=== PATIENT | female | born 1960 | race Caucasian/White ===

== ENCOUNTER → 2019-01-16 13:28 | Outpatient (CLI) | payer MEDICARE, SELFPAY ==
[2019-01-16 16:46] LABS: Amphetamine/Metha Screen,Urine Negative ng/mL (<1000); Barbiturates Screen,Urine Negative ng/mL (<200); Benzodiazepines Screen,Urine Negative ng/mL (<200); Cannabinoid Screen,Urine Negative ng/mL (<50); Cocaine Screen,Urine Negative ng/mL (<300); Methadone Screen,Urine Negative ng/mL (<300); Opiate Screen,Urine Negative ng/mL (<300); Phencyclidine Screen,Urine Negative ng/mL (<25)
== END ==
PROVIDERS: Visit Provider Nurse Practitioner Family
DX: Z79.899 Other long term (current) drug therapy (principal)
CPT/HCPCS: 80305

== ENCOUNTER → 2019-01-20 09:58 | Outpatient (CLI) | payer MEDICARE, SELFPAY ==
--- NOTE | 2019-01-20 10:01 | CT_ITS ---
PROCEDURE: CT LUMBAR SPINE WO CON CLINICAL HISTORY: back pain Low back pain with right leg pain COMPARISON: No exams were available for comparison TECHNIQUE: Axial images obtained with sagittal and coronal reformats. All CT scans at the facility use one or more dose reduction, viz: automated exposure control, ma/kV adjustment per patient size (including targeted exams where dose is matched to indication, i.e. head), or iterative reconstruction technique. FINDINGS: Normal alignment. No fracture or dislocation. There is degenerative disc disease at L2-L3 with bulging disc. Mild degenerative disc disease L3-L4 with mild bulging disc. L4-5 shows mild bulging disc along with mild facet and ligamentum hypertrophy. L5-S1: Mild concentric bulging disc slightly eccentric toward the right. Incidental note made cholelithiasis. There is mild atelectasis versus patchy infiltrate in the right lung base posteriorly. IMPRESSION: 1. Lumbar spondylosis with degenerative changes with degenerative disc disease and bulging discs as detailed above. Please see above for detail 2. Cholelithiasis. 3. Atelectasis or patchy infiltrate in the right lung base posteriorly Dictated by: Vishnu Jacome MD 01/20/2019 16:00 Electronically signed by Vishnu Jacome MD in [place] 01/20/2019 16:00
== END ==
PROVIDERS: PCP Nurse Practitioner Family; Visit Provider Nurse Practitioner Family
DX: M54.5 Low back pain (principal)
CPT/HCPCS: 72131

== ENCOUNTER → 2019-01-24 10:17 | Outpatient (CLI) | payer MEDICARE, SELFPAY ==
--- NOTE | 2019-01-24 10:22 | XR_ITS ---
PROCEDURE: XR CHEST 2V CLINICAL HISTORY: cough COMPARISON: CT LUMBAR SPINE WO CON from 01/20/2019 FINDINGS: Bipolar pacemaker is present with normal heart size. The lungs are clear without infiltrates, suspicious nodules, or pleural effusions. Previously noted density in the right lung base is either below limits of resolution or has cleared compared to the previous CT scan. IMPRESSION: No acute findings. Dictated by: Vishnu Jacome MD 01/24/2019 14:01 Electronically signed by Vishnu Jacome MD in [place] 01/24/2019 14:01
== END ==
PROVIDERS: PCP Nurse Practitioner Family; Visit Provider Nurse Practitioner Family
DX: R05 Cough (principal)
CPT/HCPCS: 71046

== ENCOUNTER → 2019-02-17 07:55 | Outpatient (CLI) | payer MEDICARE, SELFPAY ==
--- NOTE | 2019-02-17 07:59 | US_ITS ---
PROCEDURE: US GALLBLADDER CLINICAL INDICATION: GALLSTONES Pain COMPARISON: CT LUMBAR SPINE WO CON from 01/20/2019 FINDINGS: Pancreas: Unremarkable Liver: There are few fatty areas in the liver. No focal liver lesion.. There is appropriate direction of blood flow within a non dilated portal vein. Right kidney: Unremarkable appearing. No hydronephrosis. Gallbladder: There is a 16 mm stone in the fundus of the gallbladder. No gallbladder wall thickening, pericholecystic fluid, or biliary dilatation evident IMPRESSION: Cholelithiasis Dictated by: Vishnu Jacome MD 02/17/2019 15:21 Electronically signed by Vishnu Jacome MD in [place] 02/17/2019 15:21
== END ==
PROVIDERS: PCP Nurse Practitioner Family; Visit Provider Surgery
DX: K82.9 Disease of gallbladder, unspecified (principal)
CPT/HCPCS: 76705

== ENCOUNTER 2024-07-23 06:47 | Outpatient (CLI) | payer MEDICARE, SELFPAY ==
--- OUTSIDE RECORDS SUMMARY | 2024-07-02 06:00 | XMS_ITS | Encounter Summary ---
Author Organization [employer] [facility] Address [address] [place] [address] Care Team Providers Care Electric Deicer Assembler Name Role Phone Laurel Banegas EMETERIO Primary Care Provider [phone] Reason for Visit * Reason Comments Pacemaker /ICD Home Monitoring Encounter Details Date Type Department Care Team (Late st Contact Info) Description 07/02/2024 6:00 AM EDT Clinical Support [facility] Electrophysiology [address] [facility] [address] [facility] [address] [place] [address] Artie Mckeon MD [address] [facility] [address] [address] [place] [address] Encounter for adjustment or management of cardiac device (Primary Dx); Sick sinus syndrome (HCC); MRI safe cardiac pacemaker in situ Social History Tobacco Use Types Packs/Day Years Used Date Smoking Tobacco: Every Day Smokeless Tobacco: Never Alcohol Use Standard Drinks/Week Comments Not Currently 0 (1 standard drink = 0.6 oz pur e alcohol) Interpersonal Safety Answer Date Record ed Family or friends hurt you Not on file 03/02 Family or friends insult you Not on file Family or friends threaten you Not on file 0 03/02/2023 Family or friends scream or curse at you Not on file 03/02/2023 Housing Stability Answer Date Recorded Living situation today Not on file Living situation problems Not on file 2023 Family and Community Support Answer Alex e Recorded Help with Day to Day Activities Not on file 03/02/2023 Feeling Lonely or Isolated Not on file 03/02 Educational Attainment Answer Date Kristopher rded Speak language other than [place] at home Not on file 03/02/2023 Want help with school or training Not on file 03/02/2023 Depression Answer Date Recorded PHQ-2 Risk Not on file 03/02/2023 Disabilities Answer Date Recorded Difficulty concentrating Not on file 024 Difficulty doing errands alone Not on file 0 03/02/2023 Substance Use Answer Date Recorded Used prescription meds for non-medical reasons N ot on file 03/02/2023 Used illegal drugs past 12 months Not on file 03/02/2023 Comments No Sex and Gender Information Value Date Recorded Sex Assigned at Not on file Legal Sex Female 3:37 PM CDT Gender Identity Not on file Sexual Orientation Not on file documented as of this encounter Plan of Treatment Upcoming Encounters Date Type Department Care Team (Late st Contact Info) Description 09/10/2024 8:45 AM EDT Office Visit [facility] Electrophysiology [address] [facility] [address] [place] [address] Leroy Flores MD [address] [facility] [address] [place] [address] Artie Mckeon MD [address] [facility] [address] [place], [place] [id number] documented as of this encounter Visit Diagnoses Diagnosis Encounter for adjustment or management of cardiac device- Primary Sick sinus syndrome (HCC) Sinoatrial node dysfunction MRI safe cardiac pacemaker in situ documented in this encounter Care Teams Electric Deicer Assembler Relationship Specialty Start Date End Date Laurel Banegas APRN PCP - General Family Medicine 04/17/22 documented as of this encounter
--- OUTSIDE RECORDS SUMMARY | 2024-07-23 06:50 | XMS_ITS | Data Portability ---
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 Results of dipstick were negative for UTI. Advised to drink clear fluids, Tylenol for pain and take prescribed medications as instructed. Patient encouraged to follow up within 1 week if not improving. Not available 01/16/2023 13:38:41 01/23/2023 01/23/2023 Declines mammo today. Not available 01/23/2023 11:15:17 06/26/2023 06/26/2023 Refused mammo, PAP, colon cancer screening, and low dose lung CT. Not available 06/26/2023 14:31:52 12/25/2023 12/25/2023 She refuses labs today. She refuses mammogram and colon cancer screening today. Not available 12/25/2023 16:17:19 Plan of Treatment Reminders Order Date Submit Date Provider Last Modified By Organization Details Last Modified Time Details Appointments None recorded. Lab TSH, ultra-sensi tive, serum 2024 025 MARIBEL [facility] ([place] [address] [place] [address], [place], [address], 04:08:52 lipid panel, serum 2024 025 [facility] ([place]), [address] [place], [address], 5 04:08:50 cobalamin and folate panel, serum 2024 025 [facility] ([facility]), [address] [place], [address], 5 04:08:51 iron + TIBC + ferritin, serum 2024 025 [facility]), [address] [place], [address], 5 04:08:48 magnesium, serum or plasma 2024 025 [facility] ([place]), [address] [place], [address], 5 04:08:52 HbA1c (hemoglobin A1c), blood 2024 025 [facility]), [address] [place], [address], 5 04:08:51 CBC w/ auto diff 2024 025 [facility]), [address] [place], [address], 5 04:08:49 CMP, serum or plasma 2024 025 [facility]), [address] [place], [address], 5 04:08:50 lipid panel, serum 2022 023 [employer] [facility], [address], [place], [address], 3 05:30:24 CMP, serum or plasma 2022 023 MARIBELEarnest [facility], [address], [place], [address], 3 05:30:25 CBC w/ auto diff 2022 023 [employer] [facility], [address], [place], [address], 3 05:30:25 TSH, serum or plasma 2022 023 [employer] [facility], [address], [place], [address], 3 05:30:26 urinalysis, dipstick [email or web address] [place] [address], [address] [place] [address], [address], 3 13:43:49 Referral cardiologis t referral - Due for 6 month f/up 2024 025 [email or web address] Artie Mckeon MD, [address], [facility] [[email or web address]] [email or web address], [place], [address], 5 08:41:29 Procedures None recorded. Surgeries None recorded. Imaging US, gallbladder - first available appt 2023 024 [facility], [address], [place], [address], 4 11:08:06 LDCT, chest, for lung cancer screening - first avail 2023 024 [facility], [address], [place], [address], 5 09:03:15 LDCT, chest, for lung cancer screening - first available appt [email or web address] [place] [address] Central[facility] Sched[facility], [address] , [place], [address], 3 11:29:02 Medication Orders atenolol 50 mg tablet 2024 MARIBEL [facility], [address], [place], [address], 5 11:47:45 pravastatin 40 mg tablet 2024 MARIBEL [facility], [address], [place], [address], 5 11:47:41 Ventolin HFA 90 mcg/actuati on aerosol inhaler 2024 MARIBEL [facility], [address], [place], [address], 5 11:56:21 Symbicort 160 mcg-4.5 mcg/actuati on HFA aerosol inhaler 2024 MARIBEL [facility], [address], [place], [address], 5 11:47:41 Singulair 10 mg tablet 2024 MARIBEL [facility], [address], [place], [address], 5 11:47:45 mirtazapine 45 mg tablet 2024 025 MARIBEL [facility], [address], [place], [address], 5 11:47:46 ropinirole 1 mg tablet 2024 MARIBEL [facility], [address], [place], [address], 5 11:47:45 ropinirole 4 mg tablet 2024 025 MARIBEL [facility], [address], [place], [address], 5 11:47:43 omeprazole 40 mg capsule,del ayed release 2024 025 MARIBEL [facility], [address], [place], [address], 5 11:47:42 pravastatin 40 mg tablet 2023 MARIBEL [facility], [address], [place], [address], 4 15:18:14 atenolol 50 mg tablet 2023 MARIBEL [facility], [address], [place], [address], 4 15:18:15 ipratropium 0.5 mg-albutero l 3 mg (2.5 mg base)/3 mL nebulizatio n soln 2023 MARIBEL [facility], [address], [place], [address], 4 16:26:44 Singulair 10 mg tablet 2023 MARIBEL [facility], [address], [place], [address], 4 15:18:13 Ventolin HFA 90 mcg/actuati on aerosol inhaler 2023 MARIBEL [facility], [address], [place], [address], 4 16:26:47 ropinirole 1 mg tablet 2023 MARIBEL [facility], [address], [place], [address], 4 16:26:46 ropinirole 4 mg tablet 2023 024 MARIBEL [facility], [address], [place], [address], 4 16:26:52 mirtazapine 30 mg tablet 2023 025 MARIBEL [facility], [address], [place], [address], 5 11:56:09 ropinirole 1 mg tablet 2023 024 MARIBEL [facility], [address], [place], [address], 4 12:20:05 ropinirole 4 mg tablet 2023 024 MARIBEL [facility], [address], [place], [address], 4 15:03:23 pravastatin 40 mg tablet 2023 024 MARIBEL [facility], [address], [place], [address], 4 14:45:57 mirtazapine 30 mg tablet 2023 024 [email or web address] [facility], [address] [place], [address], 5 11:54:32 Ventolin HFA 90 mcg/actuati on aerosol inhaler 2023 024 MARIBEL [facility], [address], [place], [address], 4 14:46:03 Symbicort 160 mcg-4.5 mcg/actuati on HFA aerosol inhaler 2023 024 MARIBEL [facility], [address] [place], [address], 4 12:20:06 ipratropium 0.5 mg-albutero l 3 mg (2.5 mg base)/3 mL nebulizatio n soln 2023 024 MARIBEL [facility], [address], [place], [address], 4 14:45:55 Singulair 10 mg tablet 2023 024 MARIBEL [facility], [address], [place], [address], 4 14:46:06 ropinirole 1 mg tablet 2022 023 MARIBEL [facility], [address], [place], [address], 4 16:41:05 ropinirole 4 mg tablet 2022 023 MARIBEL [facility], [address], [place], [address], 4 16:41:06 mirtazapine 30 mg tablet 2022 023 [email or web address] [facility], [address], [place], [address], 5 11:54:32 pravastatin 40 mg tablet 2022 023 MARIBEL [facility], [address], [place], [address], 4 11:29:13 cefdinir 300 mg capsule 2022 023 chica [facility], [address], [place], [address], 4 14:09:27 Symbicort 160 mcg-4.5 mcg/actuati on HFA aerosol inhaler 2022 023 MARIBEL [facility], [address] [facility], [place], [address], 4 16:41:04 Ventolin HFA 90 mcg/actuati on aerosol inhaler 2022 023 [email or web address], [address] [place], [address], 3 11:18:26 Singulair 10 mg tablet 2022 023 MARIBEL [facility], [address] [place], [address], 4 11:29:15 Pyridium 100 mg tablet 2022 023 [facility], [address] [place] [address], [address], 3 10:47:18 Patient TargetsNo targets recorded. Patient InstructionsNo instructions recorded. Reason for Referral Inspector Tool Referral for Ca rdiac arrhythmia Due for 6 month f/up Referring Physician: Jonny Banegas, Family Medicine, Encounter Date: 06/27/2024 Results Created Date Observation Date Name Description Value Unit Range Abnormal Flag Note LastModifiedBy Organization Detail LastModifiedTime 01/17/2001/16/2023 urina lysis , dipst ick Leukocytes Negati ve Not Available [address], [address], 01/16/2023 13:19:38 01/17/20 23 01/16/2023 urina lysis , dipst ick Nitrite negati ve Not Available [address], [address], 01/16/2023 13:19:38 01/17/20 23 01/16/2023 urina lysis , dipst ick Urobilinogen .2 Not Available [address], [address], 01/16/2023 13:19:38 01/17/20 23 01/16/2023 urina lysis , dipst ick Protein Negati ve Not Available [address], [address], 01/16/2023 13:19:38 01/17/20 23 01/16/2023 urina lysis , dipst ick pH 6.5 Not Available [address], [address], 01/16/2023 13:19:38 01/17/2001/16/2023 urina lysis , dipst ick Blood Non-He molyze d: Trace Not Available [address], [address], 01/16/2023 13:19:38 01/17/20 23 01/16/2023 urina lysis , dipst ick Specific [place] 1.010 Not Available [address], [address], 01/16/2023 13:19:38 01/17/20 23 01/16/2023 urina lysis , dipst ick Ketone Negati ve Not Available [address], [address], 01/16/2023 13:19:38 01/17/20 23 01/16/2023 urina lysis , dipst ick Bilirubin Negati ve Not Available [address], [address], 01/16/2023 13:19:38 01/17/20 23 01/16/2023 urina lysis , dipst ick Glucose Negati ve Not Available [address] [place], [address], 01/16/2023 13:19:38 01/17/20 23 01/16/2023 urina lysis , dipst ick Appearance Clear Not Available [address], [address], 01/16/2023 13:19:38 01/17/20 23 01/16/2023 urina lysis , dipst ick Color Pale Yellow Not Available [address], [address], 01/16/2023 13:19:38 01/24/20 23 01/24/2023 LIPID PANEL , STAND STACY cholesterol, total 180 mg/dL <200 normal Not Available [facility] [address] [place], [address], 01/24/2023 08:29:48 01/24/20 23 01/24/2023 LIPID PANEL , STAND STACY HDL cholesterol 57 mg/dL > or = 50 normal Not Available [facility] [address] [place], [address], 01/24/2023 08:29:48 01/24/20 23 01/24/2023 LIPID PANEL , STAND STACY triglyceride s 155 mg/dL <150 high Not Available [facility] [address] [place], [address], 01/24/2023 08:29:48 01/24/20 23 01/24/2023 LIPID PANEL , STAND STACY LDL-choleste rol 98 mg/dL _(benjamin c) normal Refer ence range : <100 Fredo able range <100 mg/dL for prima ry preve ntion ; <70 mg/dL for patie nts with CHD or diabe tic patie nts with > or = 2 CHD risk facto rs. LDL-C is now calcu lated using the Juany n-Hop kins calcu janis n, which is a valid ated novel metho d provi ding vikash r accur acy than the Fried luma equat ion in the estim ation of LDL-C . Juany n SS et al. LOBITO. 2013; 310(1 9): 2061- 2068 (http ://ed ucati on.Qu estDi fanyUEISs. com/f aq/FA Q164) Not Available [facility] [address] [facility], [place], [address], 01/24/2023 08:29:48 01/24/20 23 01/24/2023 LIPID PANEL , STAND STACY chol/HDLC ratio 3.2 (calc ) <5.0 normal Not Available [facility] [address] [facility], [place], [address], 01/24/2023 08:29:48 01/24/20 23 01/24/2023 LIPID PANEL , STAND STACY non HDL cholesterol 123 mg/dL _(benjamin c) <130 normal For patie nts with diabe evon plus 1 major ASCVD risk facto r, treat ing to a non-H DL-C goal of <100 mg/dL (LDL- C of <70 mg/dL ) is consi maicol garnicao n. Not Available [facility] [address] [facility], [place], [address], 01/24/2023 08:29:48 01/24/20 23 01/24/2023 COMPR EHENS ALANIS METAB OLIC PANEL glucose 80 mg/dL 65-99 normal Fasti ng refer ence inter kiran Not Available [facility] [address] [facility], [place], [address], 01/24/2023 08:29:49 01/24/20 23 01/24/2023 COMPR EHENS ALANIS METAB OLIC PANEL urea nitrogen (BUN) 9 mg/dL 7-25 normal Not Available [facility] [address] [facility], [place], [address], 01/24/2023 08:29:49 01/24/20 23 01/24/2023 COMPR EHENS ALANIS METAB OLIC PANEL creatinine 0.75 mg/dL 0.50-1 .05 normal Not Available [facility] [address] [facility] [place], [address], 01/24/2023 08:29:49 01/24/20 23 01/24/2023 COMPR EHENS ALANIS METAB OLIC PANEL eGFR 91 mL/mi n/1.7 3m2 > or = 60 normal Not Available [facility] [address] [facility] [place], [address], 01/24/2023 08:29:49 01/24/2001/24/2023 COMPR EHENS ALANIS METAB OLIC PANEL BUN/creatini ne ratio SEE NOTE: (calc ) 6-22 Not Repor argelia: BUN and Creat inine are withi n refer ence range . Not Available [facility] [address] [facility] [place], [address], 01/24/2023 08:29:49 01/24/20 23 01/24/2023 COMPR EHENS ALANIS METAB OLIC PANEL sodium 137 mmol/ L 135-14 6 normal Not Available [facility] [address] [facility] [place], [address], 01/24/2023 08:29:49 01/24/20 23 01/24/2023 COMPR EHENS ALANIS METAB OLIC PANEL potassium 4.0 mmol/ L 3.5-5. 3 normal Not Available [facility] [address] [facility] [place], [address], 01/24/2023 08:29:49 01/24/20 23 01/24/2023 COMPR EHENS ALANIS METAB OLIC PANEL chloride 101 mmol/ L 98-110 normal Not Available [facility] [address] [facility] [place], [address], 01/24/2023 08:29:49 01/24/20 23 01/24/2023 COMPR EHENS ALANIS METAB OLIC PANEL carbon dioxide 27 mmol/ L 20-32 normal Not Available [facility] [address] [facility] [place], [address], 01/24/2023 08:29:49 01/24/2001/24/2023 COMPR EHENS ALANIS METAB OLIC PANEL calcium 9.9 mg/dL 8.6-10 .4 normal Not Available [facility] [address] [facility] [place], [address], 01/24/2023 08:29:49 01/24/2001/24/2023 COMPR EHENS ALANIS METAB OLIC PANEL protein, total 7.1 g/dL 6.1-8. 1 normal Not Available [facility] [address] [facility] [place], [address], 01/24/2023 08:29:49 01/24/2001/24/2023 COMPR EHENS ALANIS METAB OLIC PANEL albumin 4.4 g/dL 3.6-5. 1 normal Not Available [facility] [address] [facility] [place], [address], 01/24/2023 08:29:49 01/24/2001/24/2023 COMPR EHENS ALANIS METAB OLIC PANEL globulin 2.7 g/dL_ (calc ) 1.9-3. 7 normal Not Available [facility] [address] [facility] [place], [address], 01/24/2023 08:29:49 01/24/20 23 01/24/2023 COMPR EHENS ALANIS METAB OLIC PANEL albumin/glob ulin ratio 1.6 (calc ) 1.0-2. 5 normal Not Available [facility] [address] [facility] [place], [address], 01/24/2023 08:29:49 01/24/2001/24/2023 COMPR EHENS ALANIS METAB OLIC PANEL bilirubin, total 0.3 mg/dL 0.2-1. 2 normal Not Available [facility] [address] [place], [address], 01/24/2023 08:29:49 01/24/2001/24/2023 COMPR EHENS ALANIS METAB OLIC PANEL alkaline phosphatase 111 U/L 37-153 normal Not Available [facility] [address] [place], [address], 01/24/2023 08:29:49 01/24/2001/24/2023 COMPR EHENS ALANIS METAB OLIC PANEL AST 13 U/L 10-35 normal Not Available [facility] [employer] [facility] [address] [place], [address], 01/24/2023 08:29:49 01/24/2001/24/2023 COMPR EHENS ALANIS METAB OLIC PANEL ALT 12 U/L 6-29 normal Not Available [facility] [address] [place], [address], 01/24/2023 08:29:49 01/24/2001/24/2023 CBC (INCL UDES DIFF/ PLT) white blood cell count 9.1 thous and/u L 3.8-10 .8 normal Not Available [facility] [address] [place], [address], 01/24/2023 05:30:25 01/24/2001/24/2023 CBC (INCL UDES DIFF/ PLT) red blood cell count 5.06 merissa on/uL 3.80-5 .10 normal Not Available [facility] [address] [place], [address], 01/24/2023 05:30:25 01/24/20 23 01/24/2023 CBC (INCL UDES DIFF/ PLT) hemoglobin 14.6 g/dL 11.7-1 5.5 normal Not Available [facility] [address] [facility] [place], [address], 01/24/2023 05:30:25 01/24/2001/24/2023 CBC (INCL UDES DIFF/ PLT) hematocrit 43.0 % 35.0-4 5.0 normal Not Available [facility] [address] [facility] [place], [address], 01/24/2023 05:30:25 01/24/2001/24/2023 CBC (INCL UDES DIFF/ PLT) MCV 85.0 fL 80.0-1 00.0 normal Not Available [facility] [address] [facility] [place], [address], 01/24/2023 05:30:25 01/24/2001/24/2023 CBC (INCL UDES DIFF/ PLT) MCH 28.9 pg 27.0-3 3.0 normal Not Available [facility] [address] [facility] [place], [address], 01/24/2023 05:30:25 01/24/2001/24/2023 CBC (INCL UDES DIFF/ PLT) MCHC 34.0 g/dL 32.0-3 6.0 normal Not Available [facility] [address] [facility] [place], [address], 01/24/2023 05:30:25 01/24/2001/24/2023 CBC (INCL UDES DIFF/ PLT) RDW 13.0 % 11.0-1 5.0 normal Not Available [facility] [address] [facility] [place], [address], 01/24/2023 05:30:25 01/24/20 23 01/24/2023 CBC (INCL UDES DIFF/ PLT) platelet count 295 thous and/u L 140-40 0 normal Not Available [facility] [address] [facility] [place], [address], 01/24/2023 05:30:25 01/24/20 23 01/24/2023 CBC (INCL UDES DIFF/ PLT) MPV 9.8 fL 7.5-12 .5 normal Not Available [facility] [address] [facility], [place], [address], 01/24/2023 05:30:25 01/24/2001/24/2023 CBC (INCL UDES DIFF/ PLT) absolute neutrophils 5096 cells /uL 1500-7 800 normal Not Available [facility] [address] [place], [address], 01/24/2023 05:30:25 01/24/2001/24/2023 CBC (INCL UDES DIFF/ PLT) absolute lymphocytes 3212 cells /uL 850-39 00 normal Not Available [facility] [address] [facility] [place], [address], 01/24/2023 05:30:25 01/24/20 23 01/24/2023 CBC (INCL UDES DIFF/ PLT) absolute monocytes 537 cells /uL 200-95 0 normal Not Available [facility] [address] [facility], [place], [address], 01/24/2023 05:30:25 01/24/2001/24/2023 CBC (INCL UDES DIFF/ PLT) absolute eosinophils 164 cells /uL 15-500 normal Not Available [facility] [address] [facility], [place], [address], 01/24/2023 05:30:25 01/24/20 23 01/24/2023 CBC (INCL UDES DIFF/ PLT) absolute basophils 91 cells /uL 0-200 normal Not Available [facility] [address] [facility] [place], [address], 01/24/2023 05:30:25 01/24/2001/24/2023 CBC (INCL UDES DIFF/ PLT) neutrophils 56 % normal Not Available [facility] [address] [place], [address], 01/24/2023 05:30:25 01/24/2001/24/2023 CBC (INCL UDES DIFF/ PLT) lymphocytes 35.3 % normal Not Available [facility] [address] [facility] [place], [address], 01/24/2023 05:30:25 01/24/2001/24/2023 CBC (INCL UDES DIFF/ PLT) monocytes 5.9 % normal Not Available [facility] [address] [facility] [place], [address], 01/24/2023 05:30:25 01/24/2001/24/2023 CBC (INCL UDES DIFF/ PLT) eosinophils 1.8 % normal Not Available [facility] [address] [facility] [place], [address], 01/24/2023 05:30:25 01/24/2001/24/2023 CBC (INCL UDES DIFF/ PLT) basophils 1.0 % normal Not Available [facility] [address] [facility] [place], [address], 01/24/2023 05:30:25 01/24/2001/24/2023 TSH W/REF PORSHA TO FT4 TSH w/reflex to FT4 3.36 mIU/L 0.40-4 .50 normal Not Available [facility] [address] [place], [address], 01/24/2023 10:41:25 01/04/20 24 US, sean arndt No observ ation record ed. [facility] [address], [place], [address], 01/04/2024 11:39:00 03/20/19 25 03/14/2024 LDCT, chest , for lung cance r scree nithin No observ ation record ed. chica Johnston [facility] [address], [place], [address], 03/22/2024 10:53:54 Result Notes None recorded. 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 5 11:49:39 Non-toxi c uninodul ar goiter 001522218 Completed 201711/01/2017 Problem Code: E04.1; Problem Code Type: ICD-10; Not Available [facility] 2 22:10:04 Mixed hyperlip idemia 089671407 Active 2020 Problem Code: E78.2; Problem Code Type: ICD-10; Not Available [facility] 2 22:10:04 Restless legs 16634828 Active 2020 Problem Code: G25.81; Problem Code Type: ICD-10; Not Available [facility] 2 22:10:05 Otitis externa of right ear [id number] 18744 Completed 201912/15/2019 Problem Code: H60.331; Problem Code Type: ICD-10; Not Available [facility] 2 22:10:05 Benign paroxysm al position al vertigo or nystagmu s 910665433 Completed 201806/15/2019 Not Available [facility] 2 22:10:05 Benign paroxysm al position al vertigo or nystagmu s 773202518 Active 2019 Not Available [facility] 2 22:10:05 Cardiac arrhythm ia 917035865 Active 2018 Not Available [facility] 2 22:10:05 Acute sinusiti s 19694892 Completed 201801/10/2022 Problem Code: J01.90; Problem Code Type: ICD-10; KASSIDY MYHILDA guerrero, [employer] 2 08:13:35 Disorder of upper respirat ory system 033816707 Completed 202101/10/2022 Problem Code: J06.9; Problem Code Type: ICD-10; KASSIDY KATARZYNAHILDA null, [employer] 2 08:13:35 Tobacco dependen ce caused by cigarett es [id number] 816785 Active 2021 Problem Code: F17.210; Problem Code Type: ICD-10; Not Available [facility] 2 22:10:05 Disorder of upper respirat ory system 401714291 Completed 202007/04/2021 Problem Code: J06.9; Problem Code Type: ICD-10; KASSIDY COLÓNHILDA null, [employer] 2 08:13:35 Moderate recurren t major depressi on 77034003 Active 2018 Problem Code: F33.1; Problem Code Type: ICD-10; Not Available [facility] 2 22:10:06 Chronic obstruct alanis pulmonar y disease with acute lower respirat ory infectio n 236063041 Completed 201711/09/2017 Problem Code: J44.0; Problem Code Type: ICD-10; Not Available [facility] 2 22:10:06 Urinary tract infectio us disease 42524074 Completed 202007/04/2021 Problem Code: N39.0; Problem Code Type: ICD-10; Not Available [facility] 2 22:10:06 Diarrhea 89346689 Completed 201711/01/2017 Problem Code: R19.7; Problem Code Type: ICD-10; Not Available [facility] 2 22:10:06 Blood in urine [id number] Completed 201801/10/2022 Problem Code: R31.9; Problem Code Type: ICD-10; KASSIDY AGUILERAR null, [employer] 2 08:13:35 General examinat ion of patient Completed 201808/12/2020 KASSIDY COLÓNNEAR null, [employer] 2 08:13:35 General examinat ion of patient Completed 202001/10/2022 KASSIDY KATARZYNANEAR null, [employer] 2 08:13:35 General examinat ion of patient Completed 201908/12/2020 KASSIDY KATARZYNANEAR null, [employer] 2 08:13:35 Screenin g for malignan t neoplasm of colon Completed 201812/11/2018 KASSIDY KATARZYNANEAR null, [employer] 2 08:13:35 Screenin g for malignan t neoplasm of colon Completed 201907/02/2020 KASSIDY COLÓNNEAR null, [employer] 2 08:13:35 Screenin g for malignan t neoplasm of respirat ory tract Completed 202101/10/2022 Problem Code: Z12.2; Problem Code Type: ICD-10; KASSIDY COLÓNNEAR null, [employer] 2 08:13:35 Screenin g mammogra phy Completed 201812/11/2018 Problem Code: Z12.31; Problem Code Type: ICD-10; Not Available [facility] 2 22:10:08 Screenin g for malignan t neoplasm of colon Completed 201901/10/2022 KASSIDY KATARZYNANEAR null, [employer] 2 08:13:35 Acute sinusiti s 87007791 Completed 202007/04/2021 Problem Code: J01.90; Problem Code Type: ICD-10; KASSIDY guerrero, [employer] 2 08:13:35 Choleste rol screenin g Active 2018 Not Available [facility] 2 22:10:09 Influenz a vaccine needed 11552942281 06 Completed 201912/15/2019 Problem Code: Z23; Problem Code Type: ICD-10; Not Available [facility] 2 22:10:10 Influenz a vaccine needed 96832466188 06 Completed 202007/04/2021 Problem Code: Z23; Problem Code Type: ICD-10; Not Available [facility] 2 22:10:10 Bronchop neumonia 241832394 Completed 201711/19/2017 Problem Code: J18.0; Problem Code Type: ICD-10; Not Available [facility] 2 22:10:10 Body mass index 20-24 - normal 976094447 Completed 202008/12/2020 Not Available [facility] 2 22:10:10 Chronic obstruct alanis pulmonar y disease 55776388 Active 2017 Problem Code: J44.9; Problem Code Type: ICD-10; Not Available [facility] 2 22:10:11 Body mass index 20-24 - normal 772628007 Active 2019 Not Available [facility] 2 22:10:11 Acute exacerba tion of chronic bronchit is 314228099 Completed 201701/10/2022 KASSIDY guerrero [employer] 2 08:13:35 Cyst of thyroid 72057002 Completed 201711/01/2017 Problem Code: 246.2; Problem Code Type: ICD-9; Not Available [facility] 2 22:10:13 Problem Notes None recorded. Procedures Surgical History Date Name Laterality Status Provider Name and Address Organization Details Recorded Time 04/11/19 23 replacement of electronic heart device battery completed Jonny Banegas APRN [address] [facility], [place], [address], [employer] 07/24/2022 11:34:35 10/03/19 18 hysterectomy completed Not Available [facility] 022 22:56:08 10/03/19 18 cardiac pacemaker procedure completed Not Available [facility] 10/18/2021 22:56:09 02/18/10 92 Date of Last Pap Smear completed KASSIDY EASTMAN [employer] 01/10/2022 08:14:21 Imaging Results None recorded. Procedure Notes None recorded. Medical Equipment None Reported. Allergies No known drug allergies Medications Name Sig Start Date Stop Date Status Note LastModified by Organization Details LastModified Time Singulair 10 mg tablet Take 1 tablet every day by oral route at bedtime. 2024 active Not Available Not Available Not Avai lable amoxicillin 500 mg capsule take 1 capsule (500 mg) by oral route 3 times per day for 7 days 07/04 completed Not Available Not Available Not Available promethazin e-DM 6.25 mg-15 mg/5 mL oral syrup take 5 millilite rs by oral route every 4 hours as needed 01/16 completed Not Available Not Available Not Available Protonix 40 mg tablet,mariza yed release take 1 tablet (40 mg) by oral route 1 times per day 06/10 completed Not Available Not Available Not Available ropinirole 1 mg tablet Take 1 tablet by mouth every morning. 2024 active Not Available Not Available Not Avai lable ipratropium 0.5 mg-albutero l 3 mg (2.5 mg base)/3 mL nebulizatio n soln Inhale 3 mL 3 times a day by nebulizat ion route as needed. active Not Available Not Available No t Available flecainide 150 mg tablet take 1/2 tablet (150 mg) by oral route daily 06/25 completed Not Available Not Available Not Available azithromyci n 250 mg tablet Take 2 tablet(s) by mouth on day 1 then 1 tablet every day for the next 4 days. 07/24 completed Not Available Not Available Not Available pravastatin 40 mg tablet Take 1 tablet every day by oral route at bedtime. 2024 active Not Available Not Available Not Avai lable benzonatate 200 mg capsule take 1 capsule (200 mg) by oral route 3 times per day prn cough 07/04 completed Not Available Not Available Not Available Claritin 10 mg tablet take 1 tablet (10 mg) by oral route once daily 10/21 completed Not Available Not Available Not Available Levaquin 750 mg tablet Take one tablet daily for 5 days 11/09 completed Not Available Not Available Not Available Nicoderm CQ 21 mg/24 hr daily transdermal patch Apply 1 patch every day by transderm al route. 2022 active Not Available Not Available Not Avai lable prednisone 20 mg tablet take 0.5 mg/kg by oral route once daily 02/09 completed Not Available Not Available Not Available omeprazole 40 mg capsule,del ayed release Take 1 capsule every day by oral route for 60 days, for acid reflux. 2024 active Not Available Not Available Not Avai lable Prevacid 30 mg capsule,del ayed release take 1 capsule (30 mg) by oral route once daily before a meal 10/25 completed Not Available Not Available Not Available Tessalon Perles 100 mg capsule take 1 pill po up to TID as needed for cough 01/04 completed Not Available Not Available Not Available Requip 3 mg tablet Take one each evening 01/10 completed Not Available Not Available Not Available dicyclomine 20 mg tablet 1 po qid prn 06/10 completed Not Available Not Available Not Available meclizine 25 mg tablet take 1 tablet (25 mg) by oral route 3 times per day as needed for dizziness 07/02 completed Not Available Not Available Not Available phenazopyri dine 100 mg tablet TAKE ONE TABLET BY MOUTH THREE TIMES DAILY FOR 3 DAYS 01/23 completed Not Available Not Available Not Available doxycycline monohydrate 100 mg capsule take 1 capsule (100 mg) by oral route 2 times per day 12/11 completed Not Available Not Available Not Available ropinirole 2 mg tablet TAKE 1 TABLET BY MOUTH TWICE DAILY 01/23 completed Not Available Not Available Not Available cephalexin 500 mg capsule 07/24 completed Not Available Not Available Not Available mirtazapine 30 mg tablet Take 1 tablet every day by oral route at bedtime. 06/27 completed Not Available Not Available Not Available flecainide 50 mg tablet active Not Available Not Available Not Available mirtazapine 45 mg tablet Take 1 tablet every day by oral route at bedtime. 2024 active Not Available Not Available Not Avai lable mirtazapine 15 mg tablet Take 1 tablet(s) by mouth at bedtime 04/29 completed Not Available Not Available Not Available estradiol 0.5 mg tablet Take 1 tablet(s) by mouth daily 06/10 completed Not Available Not Available Not Available scopolamine 1 mg over 3 days transdermal patch apply 1 patch by transderm al route to the hairless area behind 1 ear at least 4 hr before effect is required; reapply every 3 days as needed 12/11 completed Not Available Not Available Not Available cefdinir 300 mg capsule Take 1 capsule every 12 hours by oral route with meals for 10 days. 06/25 completed Not Available Not Available Not Available atenolol 50 mg tablet Take one tablet by oral route twice daily 2024 active Not Available Not Available Not Avai lable amoxicillin 500 mg-potassiu m clavulanate 125 mg tablet take 1 tablet by oral route every 12 hours 12/31 completed Not Available Not Available Not Available Ventolin HFA 90 mcg/actuati on aerosol inhaler Inhale 2 puffs every 4 hours by inhalatio n route as needed. 2024 active Not Available Not Available Not Avai lable ropinirole 4 mg tablet Take 1 tablet every day by oral route at bedtime. 2024 active Not Available Not Available Not Avai lable neomycin-po lymyxin-hyd rocort 3.5 mg-10,000 unit/mL-1 % ear drops,susp instill 3 drops into affected ear(s) by otic route 3 times per day 12/14 completed Not Available Not Available Not Available Bactrim DS 800 mg-160 mg tablet take 1 tablet by oral route every 12 hours for 5 days 03/08 completed Not Available Not Available Not Available Spiriva with HandiHaler 18 mcg and inhalation capsules Inhale once daily. 07/01 completed Not Available Not Available Not Available Symbicort 160 mcg-4.5 mcg/actuati on HFA aerosol inhaler Inhale 2 puffs twice a day by inhalatio n route. 2024 active Not Available Not Available Not Avai lable Spiriva Respimat 2.5 mcg/actuati on solution for inhalation Inhale 2 puff(s) by mouth daily 06/10 completed Not Available Not Available Not Available Vitals Date Recorded Body height Body mass index (BMI) Body weight Body temperature Heart rate Oxygen saturation Oxygen saturation in Arterial blood by Pulse oximetry Systolic blood pressure Diastolic blood pressure Provider Name and Address Organization Details Last Updated DateTime 4 165.1 cm 21.6 kg/m2 93205.5 7 g 98 [degF] 86 /min 98 % 98 % 125 mm[Hg] 66 mm[Hg] [employer] 4 14:15:56 Date Recorded Body height Body mass index (BMI) Body weight Body temperature Heart rate Oxygen saturation Oxygen saturation in Arterial blood by Pulse oximetry Systolic blood pressure Diastolic blood pressure Provider Name and Address Organization Details Last Updated DateTime 5 165.1 cm 22 kg/m2 32028.9 1 g 98 [degF] 77 /min 96 % 96 % 95 mm[Hg] 57 mm[Hg] [employer] 5 11:39:19 Date Recorded Body height Body mass index (BMI) Body weight Body temperature Heart rate Oxygen saturation Oxygen saturation in Arterial blood by Pulse oximetry Systolic blood pressure Diastolic blood pressure Provider Name and Address Organization Details Last Updated DateTime 4 165.1 cm 22.4 kg/m2 15947.2 5 g 97.9 [degF] 92 /min 95 % 95 % 121 mm[Hg] 53 mm[Hg] KASSIDY COLÓNPublicBetaR [employer] 4 15:56:08 Date Recorded Body height Body mass index (BMI) Body weight Body temperature Heart rate Oxygen saturation Oxygen saturation in Arterial blood by Pulse oximetry Systolic blood pressure Diastolic blood pressure Provider Name and Address Organization Details Last Updated DateTime 3 165.1 cm 22.3 kg/m2 17189.1 g 97.6 [degF] 85 /min 99 % 99 % 101 mm[Hg] 62 mm[Hg] KASSIDY COLÓNPublicBetaPerla [employer] 3 13:19:01 Date Recorded Body height Body mass index (BMI) Body weight Body temperature Heart rate Oxygen saturation Oxygen saturation in Arterial blood by Pulse oximetry Systolic blood pressure Diastolic blood pressure Provider Name and Address Organization Details Last Updated DateTime 3 165.1 cm 22.5 kg/m2 01282.4 1 g 98 [degF] 84 /min 96 % 96 % 116 mm[Hg] 63 mm[Hg] KASSIDY [employer] 3 10:51:43 Social History Question Answer Notes LastModified by Organizat ion Details LastModified Time Tobacco Smoking Status Current Every Day Smoker Kylie guerrero, [employer] 04/18/2022 08:13:15 Do You Have An Advance Directive? No Information n ot available 01/10/2022 Is Your Home Air Conditioned? Yes Information not available 01/10/2022 In The 14 Days Before Symptom Onset, Have You Had Close Contact With A Laboratory-confirm ed COVID-19 While That Case Was Ill? No Information n ot available 01/10/2022 In The 14 Days Before Symptom Onset, Have You Had Close Contact With A Person Who Is Under Investigation For COVID-19 While That Person Was Ill? No Information not available 01/10/2022 Have You Been To An Area Known To Be High Risk For COVID-19? No Information not available 01/10/2022 What Type Of Diet Are You Following? REGULAR Information n ot available 01/10/2022 Have There Been Any Changes To Your Family Or Social Situation? No Information no t available 01/10/2022 Are There Any Guns Present In Your Home? No Information not available 01/10/2022 Do You Have A Medical Power Of Accounts Manager? No Information not available 01/10/2022 What Was The Date Of Your Most Recent Tobacco Screening? 06/27/2024 Information not available 06/27/2024 What Is Your Current Pack Years? 30ormorepack years Information not available 01/10/2022 What Is Your Relationship Status? Single Information not available 01/10/2022 Do You Use Your Seat Belt Or Car Seat Routinely? Yes Information not available 01/10/2022 Do You Have Smoke And Carbon Monoxide Detectors In Your Home? Yes Information not available 01/10/2022 At What Age Did You Start Smoking Tobacco? 24 Information not available 01/10/2022 Are You Passively Exposed To Smoke? No Information no t available 01/10/2022 Are There Any Smokers In Your House? No Information not available 01/10/2022 How Much Tobacco Do You Smoke? 1 PPD Information not available 01/10/2022 Do You Use Sunscreen Routinely? No Information not available 01/10/2022 Has Tobacco Cessation Counseling Been Provided? No Information not available 01/10/2022 How Many Years Have You Smoked Tobacco? 37 Information not available 01/10/2022 Have You Recently Traveled Abroad? No Information not available 01/10/2022 Are You Currently In School? No Information not available 01/10/2022 Do You Have Any Dietary Restrictions? No Information not available 01/10/2022 Sex: Female Functional Status Question Answer Note LastModified by Organizat ion Details LastModified Time Do you use any illicit or recreational drugs? No Information not available 01/10/2022 Do you or have you ever used any other forms of tobacco or nicotine? No Information not available 01/10/2022 What is your level of alcohol consumption? None Information not available 01/10/2022 Are you currently employed? No disability Information not available 01/10/2022 Are you able to care for yourself? Yes Information not available 01/10/2022 Mental Status None recorded. Family History Relationship Description Onset Age of this Age Resolved Age Notes LastModified by Organization Details LastModified Time Unspecified Relation Family history of malignant neoplasm of kidney [email or web address] Not available 2022 08:12:57 Unspecified Relation Family history of Hypertension [email or web address] Not available 08/2022 08:13:00 Unspecified Relation Family history of ischemic heart disease [email or web address] Not available 2022 08:13:03 Unspecified Relation Family history of Myocardial infarction [email or web address] Not available 04/18 08:13:05 Medical History Condition Response Acid Reflux (GERD) Y COPD Y High Cholesterol Y Gynecological History Statement/Question Response Date of Last Pap Smear 02/12/1191 Most Recent Mammogram Obstetrics History GPAL:G 0 P 0 0 0 0 Immunizations Vaccine Type Date Status Note Provider Nam e and Address Organization Details Recorded Time Influenza, split virus, quadrivalent, PF 3 completed Jonny Banegas APRN [address] [place] [address], [phone], [employer] 01/28/2023 19:57:20 zoster recombinant 4 completed Jonny Banegas APRN [address] [place], [address], [employer] 06/26/2023 15:26:00 COVID-19 vaccine, vector-nr, rS-ChAdOx1, PF, 0.5 mL 1 completed Not Available [facility] 01/23/2023 10:40:43 COVID-19 vaccine, vector-nr, rS-ChAdOx1, PF, 0.5 mL 1 completed Not Available [facility] 01/23/2023 10:40:43 Influenza, split virus, quadrivalent, preservative 8 completed Not Available [facility] 10/18/2021 23:51:16 Influenza, split virus, quadrivalent, PF 1 completed Not Available [facility] 10/18/2021 23:51:16 COVID-19, mRNA, LNP-S, PF, 100 mcg/0.5mL dose or 50 mcg/0.25mL dose 1 completed Kylie guerrero, [employer] 04/18/2022 08:12:28 Influenza, MDCK, quadrivalent, PF 0 completed Not Available [facility] 10/18/2021 23:51:17 Influenza, MDCK, quadrivalent, preservative 9 completed Not Available [facility] 10/18/2021 23:51:17 pneumococcal polysaccharide PPV23 0 completed Not Available [facility] 10/18/2021 23:51:17 Influenza, split virus, trivalent, PF 4 completed Jonny Banegas APRN [address] [place] [address], [phone], [employer] 12/30/2023 17:35:20 zoster recombinant 4 completed Jonny Banegas APRN [address] [place] [address], [phone], [employer] 12/30/2023 17:35:20 COVID-19, mRNA, LNP-S, PF, 100 mcg/0.5mL dose or 50 mcg/0.25mL dose 1 completed Kylie Roger null, [employer] 04/18/2022 08:12:28 COVID-19, mRNA, LNP-S, PF, 100 mcg/0.5mL dose or 50 mcg/0.25mL dose 1 completed Kylie Roger null, [employer] 04/18/2022 08:12:28 Influenza, split virus, trivalent, preservative 4 completed Kylie Roger null, [employer] 04/18/2022 08:12:28 Influenza, split virus, trivalent, PF 4 completed Kylie Roger null, [employer] 04/18/2022 08:12:28 Influenza, split virus, quadrivalent, PF 5 completed Kylie guerrero, [facility] [employer] 04/18/2022 08:12:28 Influenza, split virus, quadrivalent, PF 2 completed Jonny Banegas APRN [address] [place] [address], [phone], [facility] [employer] 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 Moderate r ecurrent major depression 20738542 F33.1 Continue remeron Restless legs 71882504 G 25.81 Continue requip Body mass index 20-24 - normal 241172149 Z68.23 Tobacco de pendence caused by cigarettes 7972186518 2697128 F17.210 Smoking cessation encouraged . Chronic ob structive pulmonary disease 32185651 J44.9 Start Symbicort and add singulair Screening for malignant neoplasm of respiratory tract 146691158 Z12.2 [id number] [place] [phone] 11/07/2022 15:53:33 11/07/2022 16:37:57 Acute sinusitis 60153590 J01.90 Patient likely has an acute bacterial sinusitis. Will treat as below.No signs of preseptal or orbital cellulitis , meningismu s, or neurologic changes concerning for intracrani al process. Instructed family to monitor patient closely and call office for any of these symptoms.S upportive care reviewed: raising HOB, humidifier use, saline nasal spray, rest, encourage PO fluids and monitor hydration status, infection control measures.R ecommended acetaminop hen/ibupro fen PRN pain, fever; reviewed appropriat e doses.Foll ow-up as below. [id number] [place] [address] 01/16/2023 13:05:22 01/16/2023 14:02:33 Dysuria 64471981 R30.0 [id number] [place] [address] 01/23/2023 10:36:04 01/23/2023 11:27:17 Restless legs 96805131 G25.81 Change requip to 4 mg at bedtime and 1 mg in the AM Moderate r ecurrent major depression 07983723 F33.1 Continue remeron Mixed hyperlipidemia 267 004409 E78.2 Chronic ob structive pulmonary disease 54780063 J44.9 Continue symbicort and singulair. Cardiac arrhythmia 29612 7007 I49.9 She was inst to keep follow up with cardiology Tobacco de pendence caused by cigarettes 8732711176 1353957 F17.210 Smoking cessation encouraged . Screening for malignant neoplasm of respiratory tract 780325969 Z12.2 Administra tion of influenza vaccine 62893929 Z23 Acute sinusitis 24199616 J01.90 Patient likely has an acute bacterial sinusitis. Will treat as below.No signs of preseptal or orbital cellulitis , meningismu s, or neurologic changes concerning for intracrani al process. Instructed family to monitor patient closely and call office for any of these symptoms.S upportive care reviewed: raising HOB, humidifier use, saline nasal spray, rest, encourage PO fluids and monitor hydration status, infection control measures.R ecommended acetaminop hen/ibupro fen PRN pain, fever; reviewed appropriat e doses.Foll ow-up as below. [id number] [place] [address] 06/26/2023 14:00:57 06/26/2023 15:04:11 Adult health examination 634435535 Z00.00 BSE reviewed and recommende d . Reviewed calcium needs, exercise, and prevention of osteoporos is . Periodic colonoscop y screening recommende d . Reviewed normal menopause and menopausal symptoms . Mammogram recommende d yearly . Cardiac arrhythmia 70131 7007 I49.9 She was inst to keep follow up with cardiology to get back on flecainide and have pacer interrogat ed. Continue atenolol. Chronic ob structive pulmonary disease 32872459 J44.9 Continue symbicort and singulair. Mixed hyperlipidemia 267 237446 E78.2 Continue pravastati n. Moderate r ecurrent major depression 01859741 F33.1 Continue remeron Restless legs 38369634 G 25.81 Change requip to 4 mg at bedtime and 1 mg in the AM Tobacco de pendence caused by cigarettes 9687343929 3851219 F17.210 Smoking cessation encouraged . Body mass index 20-24 - normal 744314722 Z68.23 Active or passive immunization 447976805 Z23 [id number] [place] [phone] 12/25/2023 15:46:07 12/25/2023 17:20:40 Administration of influenza vaccine 11677527 Z23 Active or passive immunization 039985229 Z23 Chronic ob structive pulmonary disease 34159008 J44.9 Continue symbicort and singulair. Mixed hyperlipidemia 267 630892 E78.2 Continue pravastati n. Moderate r ecurrent major depression 32569253 F33.1 Continue remeron Tobacco de pendence caused by cigarettes 2402142214 2236268 F17.210 Smoking cessation encouraged . Restless legs 97195046 G 25.81 Continue requip. Gallstone 267314352 K80. 20 Obtain US, avoid fatty meals. Screening for malignant neoplasm of respiratory tract 633909013 Z12.2 Cardiac arrhythmia 89821 7007 I49.9 Body mass index 20-24 - normal 536792179 Z68.23 [id number] Jonny BanegasEMETERIO [address] [phone] 06/27/2024 11:04:07 06/27/2024 12:02:44 Well adult 874636172 Z00.00 BSE reviewed and recommende d . Reviewed calcium needs, exercise, and prevention of osteoporos is . Periodic colonoscop y screening recommende d . Reviewed normal menopause and menopausal symptoms . Mammogram recommende d yearly . Cardiac arrhythmia 77573 7007 I49.9 She needs f/up with Cardiology . Renew atenolol. She has not been taking the flec prescribed by Cardiology and likely needs to be although she is asymptomat ic. Moderate r ecurrent major depression 94118067 F33.1 Increase remeron to 45mg q HS Mixed hyperlipidemia 267 200406 E78.2 Continue pravastati n. Restless legs 37927419 G 25.81 Continue requip. Diabetes m ellitus screening 185055736 Z13.1 Chronic ob structive pulmonary disease 61399660 J44.9 Continue symbicort and singulair. Tobacco de pendence caused by cigarettes 6672046760 7270719 F17.210 Smoking cessation encouraged . Body mass index 20-24 - normal 800511861 Z68.22 Gastroesop hageal reflux disease without esophagitis 738856422 K21.9 Start 60 day trial PPI Colon canc er screening declined 4406309564 9109 Z53.20 Mammogram declined 21842 5004 Z53.20 Health Concerns Section Related Observation LastModified by Organization Detai ls LastModified Time None Recorded Concern Status LastModified by Organization Details LastModified Time None Recorded Advance Directives Directive N: Payers Insurance Date Sequence Insurance Name Policy Number Policy Rodriguez Covered Member ID Rodriguez Member ID Guarantor Name 07/14/2024 1 [place]MEDIC[place]PLAC[place] H[place]) [id number] Chioma Santos [id number] Chioma Santos 06/25/2024 [place]EF[place]IE [employer] [facility] [id number] Chioma Santos [id number] Chioma Santos Notes Date Note Type Note Provider Name and Address Organization Details Recorded Time 01/16/2023 text/html Lower Urinary Tr act Symptoms (LUTS)Reported bypatient.Location:[facility] Quality:burning Severity:mild Onset/Timin-3 times a day; she complains of burning only with 1st AM void for the past 3 days Duration:acute; < 1 week Context:excessive caffeine intake; drinks 5-7 cups of coffee plus sodas daily Associated Symptoms:no groin pain; no pelvic pain; no flank pain; no chills; no fever; no constipation; no diarrhea; no nausea; no vomiting; no temperaure; good force of stream; no straining; no post void dribbling; no hesitancy; empties well; no urine odor; no gross hematuria; no abnormal vaginal discharge; no vaginal itching or burning;low back pain;urgency;frequency ;dysuria Jonny Banegas APRN [address] [place] [address], [address], [facility] [employer] 01/16/2023 15:00:34 01/23/2023 text/html Anxiety/Depressi onRepo rted bypatient.Severity:den ies suicidal ideations; able to maintain relationships; does not interfere with activities of daily living; symptoms improved Duration:chronic Onset/Timing:infrequen t Context:no major life stressors Modifying Factors:medications as directed Associated Symptoms:denies homicidal ideations; no significant weight gain; no significant weight loss; no visual/auditory hallucinations; no delusions; no shortness of breath; mood goodCOPDReported bypatient.Onset/Timing :intermittent Duration:chronic; has noted for years; number of attacks ; attacks are infrequent Severity:not limiting Context:cigarette smoking Alleviating factors:relieved with bronchodilator Aggravating factors:worse with cigarette smoking Associated Symptoms:no snoring; no excessive daytime sleepiness; no arousals from sleep; no fever; no weight loss; no chest tightness; no weight gain;dyspnea during exertion;fatigue;cough ing up sputum;wheezing Takes requip for restless leg syndrome, this is progressing. She sees Cardiology for cardiac arrhythmia, this is stable and she had pacemaker battery change earlier this year. Jonny Banegas, EMETERIO [address] [place], [address], [employer]. 01/28/2023 19:59:23 06/26/2023 text/html Annual WellnessReported bypatient.Diet and Nutrition:healthy diet; discussed vitamin and supplement use; discussed maintaining calcium balance Physical Activity:exercises on a regular basis; discussed weightbearing activities Additional Lifestyle Factors:no alcohol intake;tobacco use Depression Risk:history of depression Hearing:no loss of hearing Vision:no vision problemsAnxiety/Depres sionReported bypatient.Severity:den ies suicidal ideations; able to maintain relationships; does not interfere with activities of daily living; symptoms improved Duration:chronic Onset/Timing:infrequen t Context:no major life stressors Modifying Factors:medications as directed Associated Symptoms:denies homicidal ideations; no significant weight gain; no significant weight loss; no visual/auditory hallucinations; no delusions; no shortness of breath; mood goodCOPDReported bypatient.Onset/Timing :intermittent Duration:chronic; has noted for years; number of attacks ; attacks are infrequent Severity:not limiting Context:cigarette smoking Alleviating factors:relieved with bronchodilator Aggravating factors:worse with cigarette smoking Associated Symptoms:no snoring; no excessive daytime sleepiness; no arousals from sleep; no fever; no weight loss; no chest tightness; no weight gain;dyspnea during exertion;fatigue;cough ing up sputum;wheezingHyperli pidemiaReported bypatient.Duration:chr onic Prior Tests:highest cholesterol level: date: Control:usually well controlled Adherence to Treatment Plan:follows recommended diet; exercises; takes medications as prescribed Complications:cardiova scular disease Risk Factors:family history of premature arteriosclerotic cardiovascular disease;smoking;low HDL level;consumption of saturated fats and trans-fatty acids Takes requip for restless leg syndrome, this is progressing. She sees Cardiology for cardiac arrhythmia, this is stable and she had pacemaker battery change earlier this year. Jonny Banegas APRN [address] [place], [address], [employer] 06/26/2023 15:28:52 12/25/2023 text/html Abdominal PainRe ported bypatient.Location:[facility] Quality:sharp Severity:moderate Duration:intermittent Onset/Timing:acute; within 1 hour of eating Context:gallstones per patient history Associated Symptoms:no fever; no chills; no blood in the urine; no vomiting; no diarrhea; no constipation; normal stool; no blood in stool; normal appetite;heartburn;patel sea; no jaundice; no dysuria; no fatigue; no weight loss; no changes in stool; no urinary frequency; no orthopnea Other:denies possible pregnancyNotes:She reports she has gallstones and has recently been having RUQ pain after fatty meals.Anxiety/Depressi onReported bypatient.Severity:den ies suicidal ideations; able to maintain relationships; does not interfere with activities of daily living; symptoms improved Duration:chronic Onset/Timing:infrequen t Context:no major life stressors Modifying Factors:medications as directed Associated Symptoms:denies homicidal ideations; no significant weight gain; no significant weight loss; no visual/auditory hallucinations; no delusions; no shortness of breath; mood goodCOPDReported bypatient.Onset/Timing :intermittent Duration:chronic; has noted for years; number of attacks ; attacks are infrequent Severity:not limiting Context:cigarette smoking Alleviating factors:relieved with bronchodilator Aggravating factors:worse with cigarette smoking Associated Symptoms:no snoring; no excessive daytime sleepiness; no arousals from sleep; no fever; no weight loss; no chest tightness; no weight gain;dyspnea during exertion;fatigue;cough ing up sputum;wheezingHyperli pidemiaReported bypatient.Duration:chr onic Prior Tests:highest cholesterol level: date: Control:usually well controlled Adherence to Treatment Plan:follows recommended diet; exercises; takes medications as prescribed Complications:cardiova scular disease Risk Factors:family history of premature arteriosclerotic cardiovascular disease;smoking;low HDL level;consumption of saturated fats and trans-fatty acids Takes requip for restless leg syndrome. She sees Cardiology for cardiac arrhythmia, this is stable and she had pacemaker battery change earlier this year. Jonny Banegas, EMETERIO [address] [place], [address], [facility] [employer] 12/30/2023 17:39:18 06/27/2024 text/html Annual WellnessReported bypatient.Diet and Nutrition:healthy diet; discussed vitamin and supplement use; discussed maintaining calcium balance Physical Activity:exercises on a regular basis; discussed weightbearing activities Additional Lifestyle Factors:no alcohol intake;tobacco use Depression Risk:history of depression Hearing:no loss of hearing Vision:no vision problemsAnxiety/Depres sionReported bypatient.Severity:den ies suicidal ideations; able to maintain relationships; does not interfere with activities of daily living;mood worse Duration:chronic Onset/Timing:infrequen t Context:no major life stressors Modifying Factors:medications as directed Associated Symptoms:denies homicidal ideations; no significant weight gain; no significant weight loss; no visual/auditory hallucinations; no delusions; no shortness of breath; mood goodCOPDReported bypatient.Onset/Timing :intermittent Duration:chronic; has noted for years; number of attacks ; attacks are infrequent Severity:not limiting Context:cigarette smoking Alleviating factors:relieved with bronchodilator Aggravating factors:worse with cigarette smoking Associated Symptoms:no snoring; no excessive daytime sleepiness; no arousals from sleep; no fever; no weight loss; no chest tightness; no weight gain;dyspnea during exertion;fatigue;cough ing up sputum;wheezingHyperli pidemiaReported bypatient.Duration:chr onic Prior Tests:highest cholesterol level: date: Control:usually well controlled Adherence to Treatment Plan:follows recommended diet; exercises; takes medications as prescribed Complications:cardiova scular disease Risk Factors:family history of premature arteriosclerotic cardiovascular disease;smoking;low HDL level;consumption of saturated fats and trans-fatty acids Takes requip for restless leg syndrome. Has not kept her f/up appt with Cardiology and not been taking flec. Jonny Banegas, FIELD INSURANCE SALES MANAGER [address] [place], [address], [facility] [employer] 07/11/2024 16:37:50 OBGyn Episode No OBEpisode recorded.
--- OUTSIDE RECORDS SUMMARY | 2024-07-23 06:50 | XMS_ITS | Continuity of Care Document ---
Author Organization [employer], [employer] [facility] Address [address] [place] [address] Care Team Providers Care Mechanical System Technician Name Role Phone JONNY BANEGAS Primary Care Provider Unavailabl e Assessment No assessment recorded. Plan of Treatment Reminders Order Date Submit Date Provider Last Modified By Organization Details Last Modified Time Details Appointments None recorded. Lab TSH, ultra-sensi tive, serum 2024 025 [facility] [address] [place], [address], 5 04:08:52 lipid panel, serum 2024 025 [facility], [address] [place], [address], 5 04:08:50 cobalamin and folate panel, serum 2024 025 [facility], [address] [place], [address], 5 04:08:51 iron + TIBC + ferritin, serum 2024 025 [facility], [address] [place], [address], 5 04:08:48 magnesium, serum or plasma 2024 025 [facility], [facility] [place], [address], 5 04:08:52 HbA1c (hemoglobin A1c), blood 2024 025 [facility] [address] [place], [address], 5 04:08:51 CBC w/ auto diff 2024 025 [facility] [address] [place], [address], 5 04:08:49 CMP, serum or plasma 2024 025 [facility] [address] [place], [address], 5 04:08:50 Referral cardiologis t referral - Due for 6 month f/up 2024 025 shahab Mckeon MD, [address], [address], [address], 08:41:29 Procedures None recorded. Surgeries None recorded. Imaging None recorded. Medication Orders atenolol 50 mg tablet 2024 025 [facility], [facility] [place], [address], 11:47:45 pravastatin 40 mg tablet 2024 025 [facility], [address] [place], [address], 11:47:41 Ventolin HFA 90 mcg/actuati on aerosol inhaler 2024 025 [facility], [address] [place], [address], 11:56:21 Symbicort 160 mcg-4.5 mcg/actuati on HFA aerosol inhaler 2024 025 [facility], [address] [place], [address], 11:47:41 Singulair 10 mg tablet 2024 025 [facility], [address] [place], [address], 11:47:45 mirtazapine 45 mg tablet 2024 025 [facility], [address] [place], [address], 11:47:46 ropinirole 1 mg tablet 2024 025 [facility], [address] [place], [address], 11:47:45 ropinirole 4 mg tablet 2024 025 [facility], [address] [place], [address], 11:47:43 omeprazole 40 mg capsule,del ayed release 2024 025 [facility], [address] [place], [address], 11:47:42 Patient TargetsNo targets recorded. Patient InstructionsNo instructions recorded. 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 5 11:49:39 Non-toxi c uninodul ar goiter 542910451 Completed 201711/01/2017 Problem Code: E04.1; Problem Code Type: ICD-10; Not Available [facility] 2 22:10:04 Mixed hyperlip idemia 440159199 Active 2020 Problem Code: E78.2; Problem Code Type: ICD-10; Not Available [facility] 2 22:10:04 Restless legs 23260641 Active 2020 Problem Code: G25.81; Problem Code Type: ICD-10; Not Available [facility] 2 22:10:05 Otitis externa of right ear 46179073175 23267 Completed 201912/15/2019 Problem Code: H60.331; Problem Code Type: ICD-10; Not Available [facility] 2 22:10:05 Benign paroxysm al position al vertigo or nystagmu s 862554226 Completed 201806/15/2019 Not Available [facility] 2 22:10:05 Benign paroxysm al position al vertigo or nystagmu s 638121589 Active 2019 Not Available [facility] 2 22:10:05 Cardiac arrhythm ia 065943230 Active 2018 Not Available [facility] 2 22:10:05 Acute sinusiti s 80640434 Completed 201801/10/2022 Problem Code: J01.90; Problem Code Type: ICD-10; KASSIDY guerrero, [employer] 2 08:13:35 Disorder of upper respirat ory system 311255285 Completed 202101/10/2022 Problem Code: J06.9; Problem Code Type: ICD-10; KASSIDY guerrero, [employer] 2 08:13:35 Tobacco dependen ce caused by cigarett es 48571664967 941185 Active 2021 Problem Code: F17.210; Problem Code Type: ICD-10; Not Available [facility] 2 22:10:05 Disorder of upper respirat ory system 782591051 Completed 202007/04/2021 Problem Code: J06.9; Problem Code Type: ICD-10; KASSIDY EASTMAN null, [employer] 2 08:13:35 Moderate recurren t major depressi on 19520564 Active 2018 Problem Code: F33.1; Problem Code Type: ICD-10; Not Available [facility] 2 22:10:06 Chronic obstruct jennyfer pulmonar y disease with acute lower respirat ory infectio n 094871201 Completed 201711/09/2017 Problem Code: J44.0; Problem Code Type: ICD-10; Not Available [facility] 2 22:10:06 Urinary tract infectio us disease 33609109 Completed 202007/04/2021 Problem Code: N39.0; Problem Code Type: ICD-10; Not Available [facility] 2 22:10:06 Diarrhea 83051160 Completed 201711/01/2017 Problem Code: R19.7; Problem Code Type: ICD-10; Not Available [facility] 2 22:10:06 Blood in urine 07353735 Completed 201801/10/2022 Problem Code: R31.9; Problem Code Type: ICD-10; KASSIDY COLÓNNEAR null, [employer] 2 08:13:35 General examinat ion of patient Completed 201808/12/2020 KASSIDY COLÓNNEAR null, [employer] 2 08:13:35 General examinat ion of patient Completed 202001/10/2022 KASSIDY KATARZYNANEAR null, [employer] 2 08:13:35 General examinat ion of patient Completed 201908/12/2020 KASSIDY COLÓNNEAR null, [employer] 2 08:13:35 Screenin g for malignan t neoplasm of colon Completed 201812/11/2018 KASSIDY COLÓNNEAR null, [employer] 2 08:13:35 Screenin g for malignan t neoplasm of colon Completed 201907/02/2020 KASSIDY COLÓNNEAR null, [employer] 2 08:13:35 Screenin g for malignan t neoplasm of respirat ory tract Completed 202101/10/2022 Problem Code: Z12.2; Problem Code Type: ICD-10; KASSIDY COLÓNNEAR null, [employer] 2 08:13:35 Screenin g mammogra phy Completed 201812/11/2018 Problem Code: Z12.31; Problem Code Type: ICD-10; Not Available [facility] 2 22:10:08 Screenin g for malignan t neoplasm of colon Completed 201901/10/2022 KASSIDY COLÓNNEAR null, [employer] 2 08:13:35 Acute sinusiti s 35793417 Completed 202007/04/2021 Problem Code: J01.90; Problem Code Type: ICD-10; KASSIDY COLÓNNEAR null, [employer] 2 08:13:35 Choleste rol screenin g Active 2018 Not Available [facility] 2 22:10:09 Influenz a vaccine needed 84367537462 06 Completed 201912/15/2019 Problem Code: Z23; Problem Code Type: ICD-10; Not Available [facility] 2 22:10:10 Influenz a vaccine needed 40126114547 06 Completed 202007/04/2021 Problem Code: Z23; Problem Code Type: ICD-10; Not Available [facility] 2 22:10:10 Bronchop neumonia 720935265 Completed 201711/19/2017 Problem Code: J18.0; Problem Code Type: ICD-10; Not Available [facility] 2 22:10:10 Body mass index 20-24 - normal 006786621 Completed 202008/12/2020 Not Available [facility] 2 22:10:10 Chronic obstruct jennyfer pulmonar y disease 53251021 Active 2017 Problem Code: J44.9; Problem Code Type: ICD-10; Not Available [facility] 2 22:10:11 Body mass index 20-24 - normal 164009348 Active 2019 Not Available [facility] 2 22:10:11 Acute exacerba tion of chronic bronchit is 540535330 Completed 201701/10/2022 KASSIDY guerrero [employer]. 08:13:35 Cyst of thyroid 81595161 Completed 201711/01/2017 Problem Code: 246.2; Problem Code Type: ICD-9; Not Available [facility] 22:10:13 Problem Notes None recorded. Procedures Surgical History Date Name Laterality Status Provider Name and Address Organization Details Recorded Time 04/11/19 23 replacement of electronic heart device battery completed Jonny Banegas APRN [address] [place] [address], [place], [address], [employer] 07/24/2022 11:34:35 10/03/19 18 hysterectomy completed Not Available [facility] 022 22:56:08 10/03/19 18 cardiac pacemaker procedure completed Not Available [facility] 10/18/2021 22:56:09 02/18/10 92 Date of Last Pap Smear completed KASSIDY EASTMAN [employer]. 01/10/2022 08:14:21 Imaging Results None recorded. Procedure [...] Updated DateTime 5 165.1 cm 22 kg/m2 18936.9 1 g 98 [degF] 77 /min 96 % 96 % 95 mm[Hg] 57 mm[Hg] KASSIDY COLÓNHILDA [employer] 5 11:39:19 Social History Question Answer Notes LastModified by Organizat ion Details LastModified Time Tobacco Smoking Status Current Every Day Smoker Kyliesahara guerrero, [employer] 04/18/2022 08:13:15 Do You Have An Advance [...] Do You Have A Medical Power Of Clinical Trial Data Manager? No Information not available 01/10/2022 What [...] available 04/18 08:13:05 Medical History Condition Response COPD Y Acid Reflux (GERD) Y High Cholesterol Y Gynecological History Statement/Question Response Date of Last Pap Smear 02/12/1191 Most Recent Mammogram Obstetrics History GPAL:G 0 P 0 0 0 0 Immunizations Vaccine Type Date Status Note Provider Nam e and Address Organization Details Recorded Time Influenza, split virus, quadrivalent, PF 3 completed Jonny Banegas APRN [address] [place], [address], [employer] 01/28/2023 19:57:20 zoster recombinant 4 completed Jonny Banegas APRN [address] [place], [address], [employer] 06/26/2023 15:26:00 COVID-19 vaccine, vector-nr, rS-ChAdOx1, PF, 0.5 mL 1 completed Not Available [facility] 01/23/2023 10:40:43 COVID-19 vaccine, vector-nr, rS-ChAdOx1, PF, 0.5 mL 1 completed Not Available [facility] 01/23/2023 10:40:43 Influenza, split virus, quadrivalent, preservative 8 completed Not Available [facility] 10/18/2021 23:51:16 Influenza, split virus, quadrivalent, PF 1 completed Not Available [facility] 10/18/2021 23:51:16 COVID-19, mRNA, LNP-S, PF, 100 mcg/0.5mL dose or 50 mcg/0.25mL dose 1 completed Kylie guerrero, [employer] 04/18/2022 08:12:28 Influenza, MDCK, quadrivalent, PF 0 completed Not Available [facility] 10/18/2021 23:51:17 Influenza, MDCK, quadrivalent, preservative 9 completed Not Available [facility] 10/18/2021 23:51:17 pneumococcal polysaccharide PPV23 0 completed Not Available [facility] 10/18/2021 23:51:17 Influenza, split virus, trivalent, PF 4 completed Jonny Banegas APRN [address] [place] [address], [address], [employer] 12/30/2023 17:35:20 zoster recombinant 4 completed Jonny Banegas APRN [address] [place] [address], [address], [employer] 12/30/2023 17:35:20 COVID-19, mRNA, LNP-S, PF, 100 mcg/0.5mL dose or 50 mcg/0.25mL dose 1 completed Kylie Lylesall null, [employer] 04/18/2022 08:12:28 COVID-19, mRNA, LNP-S, PF, 100 mcg/0.5mL dose or 50 mcg/0.25mL dose 1 completed Kylie Rafalall null, [employer] 04/18/2022 08:12:28 Influenza, split virus, trivalent, preservative 4 completed Kylie Acacia null, [employer] 04/18/2022 08:12:28 Influenza, split virus, trivalent, PF 4 completed Kylie Rafalall null, [employer] 04/18/2022 08:12:28 Influenza, split virus, quadrivalent, PF 5 completed Kylie Rafalall null, [employer] 04/18/2022 08:12:28 Influenza, split virus, quadrivalent, PF 2 completed Jonny Banegas APRN [address] [place] [address], [address], [employer] 01/10/2022 10:00:44 Past Encounters Encounter ID Performer Location Encounter Start Date Encounter Closed Date Diagnosis/Indication Diagnosis SNOMED-CT Code Diagnosis ICD10 Code Diagnosis Note [id number] Jonny Banegas APRN [address] [address] 06/27/2024 11:04:07 06/27/2024 12:02:44 Well adult [id number] Z00.00 BSE reviewed and recommende d . Reviewed calcium needs, exercise, and prevention of osteoporos is . Periodic colonoscop y screening recommende d . Reviewed normal menopause and menopausal symptoms . Mammogram recommende d yearly . Cardiac arrhythmia 91839 7007 I49.9 She needs f/up with Cardiology . Renew atenolol. She has not been taking the flec prescribed by Cardiology and likely needs to be although she is asymptomat ic. Moderate r ecurrent major depression 86349359 F33.1 Increase remeron to 45mg q HS Mixed hyperlipidemia 267 428549 E78.2 Continue pravastati n. Restless legs 72320300 G 25.81 Continue requip. Diabetes m ellitus screening 056136820 Z13.1 Chronic ob structive pulmonary disease 33079546 J44.9 Continue symbicort and singulair. Tobacco de pendence caused by cigarettes 9838111927 8833788 F17.210 Smoking cessation encouraged . Body mass index 20-24 - normal 535445141 Z68.22 Gastroesop hageal reflux disease without esophagitis 172088795 K21.9 Start 60 day trial PPI Colon canc er screening declined 7716717697 9109 Z53.20 Mammogram declined 45948 5004 Z53.20 Health Concerns Section Related Observation LastModified by Organization Detai ls LastModified Time None Recorded Concern Status LastModified by Organization Details LastModified Time None Recorded Payers Encounter Date Sequence Insurance Name Policy Number Policy Rodriguez Covered Member ID Rodriguez Member ID Guarantor Name 06/27/2024 1 [place]MED[place]AC[place] HMO) [id number] Chioma Santos [id number] [facility] Notes Date Note Type Note Provider Name and Address Organization Details Recorded Time 06/27/2024 text/html Annual WellnessReported bypatient.Diet and Nutrition:healthy [...] Cardiology and not been taking flec. Jonny Banegas APRN [address] [facility], [place], [address], [facility] [employer] 07/11/2024 16:37:50 OBGyn Episode No OBEpisode recorded.
--- OUTSIDE RECORDS SUMMARY | 2024-07-23 06:50 | XMS_ITS | Referral Summary ---
Author Organization [employer] Address [address] [place] [address] Care Team Providers Care Medical Office Specialist Name Role Phone Laurel Banegas EMETERIO Primary Care Provider [phone] Encounters Date Type Department Care Team Description 07/02/2024 6:00 AM EDT Clinical Support [facility] Electrophysiology [address] [place] [address] [address] Artie Mckeon MD Encounter for adjustment or management of cardiac device (Primary Dx); Sick sinus syndrome (HCC); MRI safe cardiac pacemaker in situ from Last 3 Months Allergies No known active allergies Medications Ventolin HFA 90 mcg/actuation inhaler Inhale 2 puffs by mouth via inhaler daily. 01/10/2022 Active atenoloL (TENORMIN) 50 MG tablet Take 1 tablet (50 mg total) by mouth 2 (two) times daily. 01/10/2022 Active mirtazapine (REMERON) 30 MG tablet Take 1 tablet (30 mg total) by mouth nightly. 01/10/2022 Active pravastatin (PRAVACHOL) 40 MG tablet Take 1 tablet (40 mg total) by mouth daily. 01/10/2022 Active rOPINIRole (REQUIP) 2 MG tablet Take 2 tablets (4 mg total) by mouth nightly. 02/27/2022 Active flecainide (TAMBOCOR) 50 MG tablet Take 1.5 tablets (75 mg total) by mouth 2 (two) times daily. 90 tablet 2 11/05/2023 Active ipratropium-alb uteroL (DUO-NEB) 0.5 mg-3 mg(2.5 mg base)/3 mL nebulizer solution 12/25/2023 Active montelukast (SINGULAIR) 10 mg tablet SMARTSI.0 Tablet(s) By Mouth Daily 12/25/2023 Active Active Problems Problem Noted Date Diagnosed Date Encounter for adjustment or management of cardia c device 02/25/2024 MRI safe cardiac pacemaker in situ 07/03/2023 Anxiety 04/11/2022 Gastroesophageal reflux disease 04/11/2022 Irritable bowel syndrome 04/11/2022 Restless legs syndrome 04/11/2022 Sick sinus syndrome 02/07/2021 Resolved Problems Problem Noted Date Diagnosed Date Resolved Date H/O sick sinus syndrome 04/11/202206/13 Back pain 04/11/2022 07/03/2023 Cardiac conduction disorder 04/11/2022 07/03/2023 Atrial tachycardia 02/07/2021 Palpitations 07/04/2019 07/03/2023 Social History Tobacco Use Types Packs/Day Years Used Date Smoking Tobacco: Every Day Smokeless Tobacco: Never Tobacco Cessation:Ready to Q uit: Not Asked; Counseling Given: Not Answered Alcohol Use Standard Drinks/Week Comments Not Currently [...] Date Kristopher rded Speak language other than Peruvian at home Not on file 03/02/2023 Want [...] on file Sexual Orientation Not on file Last Filed Vital Signs Vital Sign Reading Time Taken Comments Blood Pressure 108/72 01/17/2024 1:04 PM EST Pulse 68 01/17/2024 1:04 PM EST Temperature - - Respiratory Rate 22 04/11/2022 4:30 PM EST Oxygen Saturation 96% 01/17/2024 1:04 PM EST Inhaled Oxygen Concentration - - Weight 59.9 kg (132 lb) 01/17/2024 1:04 PM EST Height 165.1 cm (5' 5 ) 01/17/2024 1:04 PM EST Body Mass Index 21.97 01/17/2024 1:04 PM EST Plan of Treatment Upcoming Encounters Date Type Department Care Team (Late st Contact Info) Description 09/10/2024 8:45 AM EDT Office Visit [facility] Electrophysiology [address] [facility] [address] [place] [address] Leroy Flores MD [address] [facility] [address] [place] [address] [place] [address] [place] [address] [address] [place] [address] Medical Devices Implanted Type Area Kraft Digester Operator Device Identifier Shelf Expiration Date Model / Serial / Lot Env Absrb Antibact Tyrx Lg [id number] - [id number] Implanted:Qt y: 1 on 04/11/2022 at [facility] PACEMAKER/ICD CHAMBER DEVICE Chest MEDTRONIC:CARD RHY:DISEASE MGT [id number] / / Pacemkr [place] Xtdr Mri Ipg [id number] - [id number] Implanted:Qt y: 1 on 04/11/2022 at [facility] PACEMAKER/ICD CHAMBER DEVICE Chest MEDTRONIC:CARD RHY:DISEASE MGT [id number] / / Pacemakers- Implanted: by Artie Mckeon MD (Quantity not on file) Pacemakers [id number] 08/10/2023 / [id number] / Explanted Type Area Kraft Digester Operator Device Identifier Shelf Expiration Date Model / Serial / Lot Pacemakers-11/12 Implanted:11/26 (Quantity not on file) Pacemakers MEDTRONIC REVO / [id number] / Procedures Procedure Name Priority Date/Time Associated Diagnosis Comments CT LUNG SCREENING INITIAL Routine 03/14/2024 2:29 PM EST Cigarette smoker from Last 3 Months or Most Recently Relevant to Health Maintenance Results * CT Lung Screening Initial (03/14/2024 2:29 PM EST) Anatomical Region Laterality Modality Chest, Lung Computed Tomogra phy (CT) 03/14/2024 4:00 PM EST Impressions 03/14/2024 4:18 PM EST Lung Rads Category 1: Continued low dose chest CT recommended in 1 year. Images reviewed, interpreted, and dictated by Dr. Nicky Tee. Transcribed by Jaydon Prieto PA-C. Narrative 03/14/2024 4:[address] SCAN OF THE CHEST 03/14/2024 2:24 PM HISTORY: Screening CT. Current smoker with 39 pack year smoking history. COMPARISON: None. PROCEDURE: Axial images were obtained from the lung apex to the mid abdomen by computed tomography. Low-dose protocol was utilized. The CTDIvol is 1.29 mGy. The DLP is 47.19 mGy*cm. This study was performed with techniques to keep radiation doses as low as reasonably achievable, (ALARA). Individualized dose reduction techniques using automated exposure control or adjustment of mA and/or kV according to the patient size were employed. FINDINGS: CHEST: A pacemaker overlies the left chest. There is no axillary adenopathy. There is no hilar or mediastinal adenopathy. Heart size is normal. There is no pericardial or pleural effusion. Limited images of the upper abdomen demonstrates the stomach to be mildly distended. There is debris in the trachea. No suspicious infiltrate or nodule identified. Laurel Banegas ELEVATOR DISPATCHER IMG CT ORDERABLES Final Resu lt from Last 3 Months or Most Recently Relevant to Health Maintenance Insurance [facility] [place] [id number] [facility] ACC[facility] O MAP Advance Directives For more information, please contact: [phone] * Full Code (Latest Code Status on File) Date Activated Date Inactivated Comments 04/11/2022 10:21 AM 04/12/2022 4:26 AM Care Teams Medical Office Specialist Relationship Specialty Start Date End Date Laurel Banegas, ELEVATOR DISPATCHER PCP - General Family Medicine 04/17/22
--- OUTSIDE RECORDS SUMMARY | 2024-07-23 06:50 | XMS_ITS | Clinical Summary ---
Author Organization [employer] Address [address] [place] [address] Care Team Providers Care Supply Chain Generalist Name Role Phone BanegasLaurel roper Melissa STORM Primary Care Provider [phone] Allergies No known active allergies Medications Ventolin [...] Date Resolved Date H/O sick sinus syndrome 04/11/2022 05/2 02/2023 Back pain 04/11/2022 07/03/2023 Cardiac conduction disorder 04/11/2022 07/03/2023 Atrial tachycardia 02/07/2021 Palpitations 07/04/2019 07/03/2023 Encounters Date Type Department Care Team Description 07/02/2024 6:00 AM EDT Clinical Support [facility] Electrophysiology [address] [place] [address] [address] Artie Mckeon MD Encounter for adjustment or management of cardiac device (Primary Dx); Sick sinus syndrome (HCC); MRI safe cardiac pacemaker in situ from Last 3 Months Social History Tobacco Use Types Packs/Day Years [...] Date Kristopher rded Speak language other than Puerto Rican at home Not on file 03/02/2023 [...] Description 09/10/2024 8:45 AM EDT Office Visit [facility] Electrophysiology [address] [facility] [address] [place] [address] Leroy Flores MD [address] [place] [address] [place] [address] [place] [address] [address] [place], [place] [id number] Health Maintenance Due Date Last Done Comments CT Colonography 1962 Colonoscopy 1962 Colorectal Cancer Screening 1962 FOBT/FIT 1962 Fit-DNA (Cologuard) 1962 Sigmoidoscopy 1962 Depression Screening (12+) 1974 Tobacco Cessation Counseling and Screening (12+) 1974 HIV Screening 1977 Hepatitis C Screening 1980 DTAP/TDAP/TD VACCINES (1 - Tdap) 1981 Pap Smear 12/24/1983 Breast Cancer Screening 2002 Lipid Panel 12/24/2007 Pneumococcal 50+ years (2 of 2 - PCV) 06/10/2020 06/11/2019 Medicare Initial AWV [id number] 02/13/2022 COVID-19 VACCINE (4 - 2023-2 5 season) 2023 12/09/2020, 05/13/2020, 05/13/2020, Additional history exists Influenza Vaccine (Season Ended) 2024 10/22/2019, 12/11/2018, 11/09/2017 Lung cancer screening 03/14/2025 03/14/2024 Respiratory Syncytial Virus (RSV) Adult or (1 - 1-dose 75+ series) 2037 Shingles Vaccine (Zoster) Completed 12/25/2023, Medical Devices Implanted Type Area Road Passenger Firer Device Identifier Shelf Expiration Date Model / Serial / Lot Env Absrb Antibact Tyrx Lg [id number] - [id number] Implanted:Qt y: 1 on 04/11/2022 at [facility] PACEMAKER/ICD CHAMBER DEVICE Chest MEDTRONIC:CARD RHY:DISEASE MGT [id number] / / Pacemkr [place] Xtdr Mri Ipg [id number] - [id number] Implanted:Qt y: 1 on 04/11/2022 at [facility] PACEMAKER/ICD CHAMBER DEVICE Chest MEDTRONIC:CARD RHY:DISEASE MGT [id number] / / Pacemakers- Implanted: by Artie Mckeon MD (Quantity not on file) Pacemakers [id number] 08/10/2023 / [id number] / Explanted Type Area Road Passenger Firer Device Identifier Shelf Expiration Date Model / Serial / Lot Pacemakers-11/12 Implanted:11/26 (Quantity not on file) Pacemakers MEDTRONIC REVO / [id number] / Procedures Procedure Name Priority Date/Time Associated [...] suspicious infiltrate or nodule identified. Laurel Banegas APRN IMG CT ORDERABLES Final Resu lt from Last 3 Months or Most Recently Relevant to Health Maintenance Insurance [facility] [employer] ACCESS O MAP Advance Directives For more information, please contact: [phone] * Full Code (Latest Code Status on File) Date Activated Date Inactivated Comments 04/11/2022 10:21 AM 04/12/2022 4:26 AM Care Teams Supply Chain Generalist Relationship Specialty Start Date End Date Laurel Banegas, ASSOCIATE AGENT INSURANCE SALES PCP - General Family Medicine 04/17/22
--- OUTSIDE RECORDS SUMMARY | 2024-07-23 06:50 | XMS_ITS | Clinical Summary ---
Author Organization Healthcare Address [address] [place] [address] Care Team Providers Care Anesthesia Assistant Name Role Phone Laurel Banegas WORD PROCESSOR TECHNICIAN Primary Care Provider Family History Medical History Relation Name Comments Laryngeal Cancer Father Hypertension Mother Conversions - Other Sister [facility] Relation Name Status Comments Father Mother Sister Social History Tobacco Use Types Packs/Day Years Used Date Smoking Tobacco: Some Days Comments Unknown Sex and Gender Information Value Date Recorded Sex Assigned at Not on file Legal Sex Female 6:14 PM EDT Gender Identity Not on file Sexual Orientation Not on file Last Filed Vital Signs Vital Sign Reading Time Taken Comments Blood Pressure 104/69 11/30/2017 9:50 AM EDT Pulse 99 11/30/2017 9:50 AM EDT Temperature - - Respiratory Rate - - Oxygen Saturation - - Inhaled Oxygen Concentration - - Weight 66.9 kg (147 lb 7.8 oz) 11/30/2017 9:50 AM EDT Height 167.6 cm (5' 6 ) 02/24/2016 1:03 PM EST Body Mass Index 23.81 02/24/2016 1:03 PM EST Plan of Treatment Not on file Care Teams Anesthesia Assistant Relationship Specialty Start Date End Date Laurel Banegas, EMETERIO [address] [place] [address] PCP - General 06/25/20
--- NOTE | 2024-07-23 07:00 | CT_ITS ---
FINAL REPORT TECHNIQUE: Axial images through the abdomen and pelvis were performed without contrast. This study was performed with techniques to keep radiation doses as low as reasonably achievable, (ALARA). Individualized dose reduction techniques using automated exposure control or adjustment of mA and/or kV according to the patient's size were employed. CLINICAL HISTORY: right upper quad pain FINDINGS: Abdomen: The lung bases are clear. Streak artifact is seen from pacemaker leads. There is mild fatty infiltration of the liver. There is a gallstone and a contracted gallbladder. The spleen, pancreas, adrenals and kidneys are unremarkable. Pelvis: The urinary bladder is unremarkable. Moderate stool burden is identified. The appendix is not visualized. There is no pelvic mass or inflammation. IMPRESSION: Gallstone in a contracted gallbladder. Reviewed, Interpreted and Dictated by Chino Johnson MD Transcribed by Monserrat Guidry Authenticated and [facility]
[2024-07-23] MEDS: BARIUM SULFATE(READI-CAT2);450ML BOTTLE 450 ML PO (07:20)
== END 2024-07-23 23:59 | disposition home or self-care (01) ==
LOC: RAD 06:48
PROVIDERS: PCP Nurse Practitioner Family; Visit Provider Surgery
DX: K80.21 Calculus of gallbladder without cholecystitis with obstruction (principal); K76.0 Fatty (change of) liver, not elsewhere classified
CPT/HCPCS: 74176

== ENCOUNTER 2024-09-10 12:47 | Outpatient (CLI) | payer MEDICARE, SELFPAY ==
--- OUTSIDE RECORDS SUMMARY | 2024-07-02 06:00 | XMS_ITS | Encounter Summary ---
Author Organization [employer] ([place], [place], [place], [place]) Address [address] [place] [address] Care Team Providers Care Chief Clerk Name Role Phone Bassam Laurel Melissa STORM Primary Care Provider [phone] Reason for Visit * Reason Comments Pacemaker /ICD Home Monitoring Encounter Details Date Type Department Care Team (Late st Contact Info) Description 07/02/2024 6:00 AM EDT Clinical Support [facility] Electrophysiology [address] [place] [address] [place] [address] [place] [address] [address] [place] [id number] Encounter for adjustment or management of cardiac device (Primary Dx); Sick sinus syndrome (HCC); MRI safe cardiac pacemaker in situ Social History Tobacco Use Types Packs/Day Years Used Date Smoking Tobacco: Every Day Smokeless Tobacco: Never Alcohol Use Standard Drinks/Week Comments Not Currently 0 (1 standard drink = 0.6 oz pur e alcohol) Family and Community Support Answer Alex e Recorded Help with Day to Day Activities Not on file 03/02/2023 Feeling Lonely or Isolated Not on file 03/02 Educational Attainment Answer Date Kristopher rded Speak language other than [place]cu[place] at home Not on file 03/02/2023 Want help with school or training Not on file 03/02/2023 Substance Use Answer Date Recorded Used [...] as of this encounter Plan of Treatment Not on file documented as of this encounter Visit Diagnoses Diagnosis Encounter for adjustment or management of cardiac device- Primary Sick sinus syndrome (HCC) Sinoatrial node dysfunction MRI safe cardiac pacemaker in situ documented in this encounter Care Teams Chief Clerk Relationship Specialty Start Date End Date Laurel Banegas, [employer] PCP - General Family Medicine 04/17/22 documented as of this encounter
[2024-09-10 09:06] VITALS: BMI 21.9
--- OUTSIDE RECORDS SUMMARY | 2024-09-10 12:51 | XMS_ITS | Referral Summary ---
Author Organization [employer] ([place], [place], [place], [place]) Address [address] [place] [address] Care Team Providers Care Manager Wealth Management Name Role Phone Laurel Banegas APRN Primary Care Provider [phone] Encounters Date Type Department Care Team Description 07/02/2024 6:00 AM EDT Clinical Support [facility] Electrophysiology [address] [place] [address] Artie Mckeon MD Encounter for adjustment or [...] Date Kristopher rded Speak language other than Faroese at home Not on file 03/02/2023 Want [...] 01/17/2024 1:04 PM EST Plan of Treatment Not on file Medical Devices Implanted Type Area Health Worker Device Identifier Shelf Expiration Date Model / Serial / Lot Env Absrb Antibact Tyrx Lg [id number] - [id number] Implanted:Qt y: 1 on 04/11/2022 at [facility] PACEMAKER/ICD CHAMBER DEVICE Chest MEDTRONIC:CARD RHY:DISEASE MGT [id number] / / Pacemkr [place] Xtdr Mri Ipg W1dr01 - [id number] Implanted:Qt y: 1 on 04/11/2022 at [facility] PACEMAKER/ICD CHAMBER DEVICE Chest MEDTRONIC:CARD RHY:DISEASE MGT [id number] / / Pacemakers- Implanted: by Artie Mckeon MD (Quantity not on file) Pacemakers [id number] 08/10/2023 / [id number] G / Explanted Type Area Health Worker Device Identifier Shelf Expiration Date Model / Serial / Lot Pacemakers-11/12 Implanted:11/26 (Quantity not on file) Pacemakers MEDTRONIC REVO / [id number] / Procedures Procedure Name Priority Date/Time Associated [...] Most Recently Relevant to Health Maintenance Insurance [employer] O MAP Advance Directives For more information, please contact: [phone] * Full Code (Latest Code Status on File) Date Activated Date Inactivated Comments 04/11/2022 10:21 AM 04/12/2022 4:26 AM Care Teams Manager Wealth Management Relationship Specialty Start Date End Date Laurel Banegas APRN PCP - General Family Medicine 04/17/22
--- OUTSIDE RECORDS SUMMARY | 2024-09-10 12:51 | XMS_ITS | Clinical Summary ---
Author Organization Healthcare Address [address] [place] [address] Care Team Providers Care Key Punch Teacher Name Role Phone Laurel Banegas POLYMER MATERIALS CONSULTANT Primary Care Provider [phone] Family History Medical History Relation Name Comments [...] of Treatment Not on file Care Teams Key Punch Teacher Relationship Specialty Start Date End Date Laurel Banegas, EMETERIO [address] [place] [address] PCP - General 06/25/20
--- OUTSIDE RECORDS SUMMARY | 2024-09-10 12:51 | XMS_ITS | Clinical Summary ---
Author Organization [employer] ([place], [place], [place], [place]) Address [address] [place] [address] Care Team Providers Care Bacon De Rinder Name Role Phone Laurel Banegas APRN Primary Care Provider Allergies No known active allergies Medications Ventolin [...] EDT Clinical Support [facility] Electrophysiology [address] [place] [address] Artie Mckeon MD Encounter for adjustment [...] Date Kristopher rded Speak language other than Malian at home Not on file 03/02/2023 Want [...] 01/17/2024 1:04 PM EST Plan of Treatment Health Maintenance Due Date Last Done Comments [...] 05/13/2020, 05/13/2020, Additional history exists Influenza Vaccine (#1) 2024 , 12/11/2018, 11/09/2017 Lung cancer screening 03/14/2025 03/14/2024 Respiratory Syncytial Virus (RSV) Adult or (1 - 1-dose 75+ series) 2037 Shingles Vaccine (Zoster) Completed 12/25/2023, Medical Devices Implanted Type Area Contemporary Or Modern Dancer Device Identifier Shelf Expiration Date Model / Serial / Lot Env Absrb Antibact Tyrx Lg [id number] - [id number] Implanted:Qt y: 1 on 04/11/2022 at [facility] PACEMAKER/ICD CHAMBER DEVICE Chest MEDTRONIC:CARD RHY:DISEASE MGT [id number] / / Pacemkr [place] Xtdr Mri Ipg W1dr01 - [id number] Implanted:Qt y: 1 on 04/11/2022 at [facility] PACEMAKER/ICD CHAMBER DEVICE Chest MEDTRONIC:CARD RHY:DISEASE MGT [id number] / / Pacemakers- Implanted: by Artie Mckeon MD (Quantity not on file) Pacemakers [id number] 08/10/2023 / [id number] / Explanted Type Area Contemporary Or Modern Dancer Device Identifier Shelf Expiration Date Model / Serial / Lot Pacemakers-11/12 Implanted:11/26 (Quantity not on file) Pacemakers MEDTRONIC REVO / [id number] / Procedures Procedure Name Priority Date/Time Associated [...] Most Recently Relevant to Health Maintenance [facility] ACCESS O MAP Advance Directives For more information, please contact: [phone] * Full Code (Latest Code Status on File) Date Activated Date Inactivated Comments 04/11/2022 10:21 AM 04/12/2022 4:26 AM Care Teams Bacon De Rinder Relationship Specialty Start Date End Date Laurel Banegas APRN PCP - General Family Medicine 04/17/22
[2024-09-10 13:15] LABS: Hematocrit 42.9 % (37.0-47.0); Hemoglobin 14.2 g/dL (12.2-16.2); Mean Corpuscular HGB Conc 33.1 g/dL (31.8-35.4); Mean Corpuscular Hemoglobin 28.7 pg (27.0-31.2); Mean Corpuscular Volume 86.8 fl (81-99); Platelet Count 229 K/mm3 (142-424); Red Blood Count 4.94 M/mm3 (4.20-5.40); White Blood Count 6.1 K/mm3 (4.8-10.8)
[2024-09-10 14:12] LABS: Alanine Aminotransferase 19 U/L (12-78); Albumin Level 4.6 g/dl (3.5-5.0); Albumin/Globulin Ratio 1.8 (1.1-1.8); Alkaline Phosphatase 95 U/L (38-126); Anion Gap 10.8 mEq/L (5-15); Aspartate Amino Transferase 29 U/L (14-36); Bilirubin,Total 0.3 mg/dl (0.2-1.3); Blood Urea Nitrogen 5 mg/dl (7-17); Calcium 9.9 mg/dl (8.4-10.2); Carbon Dioxide 30 mmol/L (22.0-30.0); Chloride 105 mmol/L (98-107); Creatinine Clearance Estimated 56 mL/min (50-200); Creatinine,Serum 0.80 mg/dl (0.52-1.04); Estimated Glomerular Filt Rate 73 ml/min (>60); GFR (African American) 88 ML/MIN (>60); Globulin 2.6 g/dL (1.3-3.2); Glucose 99 mg/dl (74-100); Potassium 3.8 mmoL/L (3.5-5.1); Sodium 142 mmol/L (136-145); Total Protein,Serum 7.2 g/dl (6.3-8.2)
[2024-09-10 16:37] LABS: Total Cells Counted 100
[2024-09-10 16:38] LABS: RBC Morphology Normal
== END 2024-09-10 23:59 | disposition home or self-care (01) ==
LOC: PREOP 12:48
PROVIDERS: PCP Nurse Practitioner Family; Visit Provider Surgery
DX: Z01.812 Encounter for preprocedural laboratory examination (principal)
CPT/HCPCS: 80053; 85007; 85014; 85018; 85048; 85049

== ENCOUNTER 2024-09-15 08:26 | Day surgery (SDC) | payer MEDICARE, SELFPAY ==
[2024-09-10 13:45] VITALS: BMI 21.9
[2024-09-15] VITALS (10 sets, daily range): BP systolic 109–142; BP diastolic 57–72; PULSE 62–66; RESP 16–18; TEMP 36.1–36.4; O2SAT 94–100; BMI 21.9
[2024-09-15] MEDS: LACTATED RINGERS 1000ML 1,000 ML 25 ML IV (08:57)
--- NOTE | 2024-09-15 09:08 | P.PNANES_ITS ---
[facility] Disclaimer: The information contained in this section may have been updated after the patient was seen, as this information can be updated by other users. Medical History COPD (chronic obstructive pulmonary disease) Arrhythmia GERD (gastroesophageal reflux disease) HLD (hyperlipidemia) HTN (hypertension) Surgical History History of appendectomy History of permanent cardiac pacemaker placement H/O: hysterectomy History of colonoscopy Family History Other Family history of cancer Social History Smoking Status: Current every day smoker tobacco type: cigarettes packs per day: 1 alcohol intake: never substance use type: denies use current occupational status: unemployed and disabled Travel in the last 8 weeks?: None Have you lived/traveled outside US in past 30 days?: No Contact w/someone who lives/traveled outside US past 30 days?: No Exposure to someone with infectious disease in past 14 days?: No Do you have a fever (greater than 100.4 F or 38 C)?: No Have you tested positive for COVID-19?: No Exposed to someone with COVID-19 in past 14 days?: No Do you have a sore throat?: No Do you have a cough?: No Do you have any weakness?: No Are you experiencing any nausea/vomitting?: No Do you have any diarrhea?: No Are you experiencing any unusual bleeding?: No Do you have any muscle aches/pain?: No Do you have any abdominal pain?: No Are you experiencing loss of taste or smell?: No [facility] Anesthesia Checklist Patient Identification Patient Identification: Arm Band and Verbal (Name & ) Structural Data Admitted From: Home Planned Operative Procedure/s: lap keerthi Consent for Planned Operative Procedure(s) Verified: Yes Verified Documents: Surgical Consent and History and Physical NPO Status Verified Time NPO: 00:00 Additional verifications Anesthesia Reactions: No Hx Blood Transfusions: No Blood Transfusion Reaction: No Cardiovascular Assessment Pulse Rhythm: Regular Airway Assessment Mallampati Score:: Class II Dentition: Edentulous Neurological Assessment Level of Consciousness: Awake, Alert and Appropriate Hx Seizures: No Anesthesia Plan Anesthesia Risk discussed: Yes Anesthesia Plan: Verified ASA Class: II Anesthesia Type: General
[2024-09-15] MEDS: LIDOCAINE 1% 20ML MDV 20 ML (09:50)
--- NOTE | 2024-09-15 11:05 | P.OP_ITS ---
Date of procedure: 09/15/24 Pre-op Diagnosis:: Chronic calculus cholecystitis Post-op Diagnosis:: Same Procedure performed:: Laparoscopic cholecystectomy Surgeon:: Angel Pelayo MD Anesthesia: ONEL Estimated blood loss (mL): 25 Operative findings:: She has somewhat thickened distended gallbladder. There is a moderate stone. She had some corkscrew affect of the cystic duct and cystic artery such that the cystic artery was twisted around the cystic duct. Operative note:: Consent was obtained patient was taken to the operating room. She was positioned in a supine position. General anesthesia was induced via endotracheal tube. Abdomen was prepped and draped in the standard surgical fashion. Subumbilical skin incision was made and while performing abdominal wall lift Veress needle was inserted. CO2 pneumoperitoneum was achieved to 15 mmHg. 11 mm trocar was inserted at the umbilicus. Intraperitoneal contents were visualized. She was positioned in reverse Trendelenburg left side down. A couple 5 mm trocars were inserted in the right upper abdomen. 11 mm trocar was inserted in the epigastrium. Gallbladder was grasped retracted anteriorly and superiorly over the dome of the liver. Infundibulum of the gallbladder is r etracted anterior laterally. Blunt dissection was carried out the neck of the gallbladder bluntly incising the visceral peritoneum. Careful dissection was carried out. It appeared as though the cystic artery was actually twisted around the cystic duct. This was carefully dissected free. Cystic artery was then carefully coagulated with ultrasonic harmonic taiwo and divided. The cystic duct was isolated. It was then multiply clipped and sharply divided. Gallbladder was dissected free from the liver in a retrograde fashion using ultrasonic harmonic taiwo. Gallbladder was placed within an Endo Catch retrieval device and removed the peritoneal cavity via the umbilical trocar site. Gallbladder fossa was inspected for hemostasis. Some limited spot use of laparoscopic electrocautery was used for hemostasis. There was good hemostasis. Limited irrigation and suctioning was performed until clear. Trocars were then removed the CO2 pneumoperitoneum was evacuated. Fascia at the umbilicus was closed with a couple of 0 Vicryl sutures. Local anesthetic was infiltrated. Anterior fascia at the epigastric trocar site was closed with 0 Vicryl suture. Skin incisions were closed with 4-0 Monocryl subcuticular fashion. Steri-Strips and pressure dressings were applied. Condition: stable Disposition: PACU Complications:: None immediately apparent
--- NOTE | 2024-09-15 11:14 | P.PNANES_ITS ---
[facility] Anesthesia Record Part I Anesthesia Record I Intake, IV Amount: 900 Hydration: Adequate Estimated blood loss (mL): 10 Urine output (mL): 0 Blood Products used (#): none Blood Pressure: 142/72 SaO2: 100 Pulse Rate: 66 Airway Patency: Patent Respiratory Rate: 16 Temperature: 97.6 F Patient is:: Drowsy and Stable Stable to PACU at:: 11:10
[2024-09-15] MEDS: MORPHINE 2MG/ML SYRINGE 2 MG IV (11:35)
--- NOTE | 2024-09-15 12:11 | EXP.ANES.II ---
[facility] Anesthesia Record Part II Anesthesia Record Part II Discharge Time: 11:40 Destination: Surgical Day Care (OP Surgery) PACU nurse assessment reviewed?: Yes Patient Condition:: Good Anesthesia Complications:: None Swallowing reflex intact?: Yes Airway Patency: Patent Cyanosis?: No Blood Pressure: 139/72 SaO2: 95 Respiratory Rate: 17 Pulse Rate: 65 Temperature: 97 F Mental Status: Alert & Oriented Pain level:: 4 Nausea and/or vomitting:: None Intake, IV Amount: 0 Hydration: Adequate
== END 2024-09-15 12:20 | disposition home or self-care (01) ==
PROVIDERS: PCP Nurse Practitioner Family; Visit Provider Surgery
PROC: 0FT44ZZ Resection of Gallbladder, Percutaneous Endoscopic Approach (ICD-10-PCS; CPT 47562; principal; 2024-09-15 10:00)
DX: K80.10 Calculus of gallbladder with chronic cholecystitis without obstruction (principal); J44.9 Chronic obstructive pulmonary disease, unspecified; K21.9 Gastro-esophageal reflux disease without esophagitis; I10 Essential (primary) hypertension; E78.5 Hyperlipidemia, unspecified; F17.210 Nicotine dependence, cigarettes, uncomplicated; Z91.041 Radiographic dye allergy status; Z90.49 Acquired absence of other specified parts of digestive tract; Z95.0 Presence of cardiac pacemaker; Z79.899 Other long term (current) drug therapy
CPT/HCPCS: 47562; 88304; 96374; J1100; J1885; J2003; J2250; J2270; J2405; J2704; J2795; J3010; J7120